=== PATIENT | female | born 1945 | race Caucasian/White ===

== ENCOUNTER → 2018-05-01 06:53 | Outpatient (CLI) | payer MEDICARE, SELFPAY ==
[2018-05-01 09:40] LABS: Alanine Aminotransferase 37 IU/L (9-52); Albumin 4.3 g/dL (3.5-5.0); Albumin Globulin Ratio 1.8 (1.0-2.8); Alkaline Phosphatase 72 U/L (38-126); Aspartate Aminotransferase 30 IU/L (14-36); Bilirubin Total 0.6 mg/dL (0.2-1.3); Blood Urea Nitrogen 20 mg/dL (7-17); Calcium 9.7 mg/dL (8.4-10.2); Carbon Dioxide 30 mmol/L (22-32); Chloride 104 mmol/L (98-107); Cholesterol 178 mg/dL (140-199); Estimated Glomerular Filt Rate > 60.0 mL/min (>60); Globulin 2.4 g/dL (1.7-4.1); Glucose 106 mg/dL (80-110); HDL Cholesterol 66 mg/dL (40-60); HEMOLYSIS < 15 (0-50); LDL Cholesterol Calculated 85 mg/dL (<100); Sodium 143 mmol/L (137-145); Total Protein 6.7 g/dL (6.3-8.2); Triglycerides 136 mg/dL (35-150)
[2018-05-01 09:46] LABS: Potassium 5.4 mmol/L (3.4-5.1)
[2018-05-01 10:18] LABS: Creatinine Urine Random 111.2 mg/dL
[2018-05-01 10:24] LABS: Microalbumi Creatinin Ratio Ur 9.8 ug/mg CR (<30); Microalbumin Urine Random 1.1 mg/dL (0-1.6)
== END ==
PROVIDERS: PCP Physician Assistant; Visit Provider Physician Assistant
DX: I10 Essential (primary) hypertension (principal); Z13.220 Encounter for screening for lipoid disorders; Z13.6 Encounter for screening for cardiovascular disorders
CPT/HCPCS: 36415; 80053; 80061; 82043; 82570

== ENCOUNTER → 2018-09-01 11:22 | Outpatient (CLI) | payer MEDICARE, SELFPAY ==
--- NOTE | 2018-09-01 | DI.MG.S_ITS ---
BILATERAL DIGITAL SCREENING MAMMOGRAM 3D/2D WITH CAD: 09/01/2018 CLINICAL: Routine screening. Comparison is made to exams dated: 08/29/2017 mammogram, 08/26/2016 mammogram, and 08/17/2015 mammogram - [facility]. The tissue of both breasts is heterogeneously dense. This may lower the sensitivity of mammography. Current study was also evaluated with a Computer Aided Detection (CAD) system. There are benign vascular calcifications in both breasts. No significant masses, calcifications, or other findings are seen in either breast. There has been no significant interval change. IMPRESSION: There is no mammographic evidence of malignancy. A 1 year screening mammogram is recommended. This exam was interpreted at Station ID: [id number]. NOTE: For mammograms, a report in lay terms will be sent to the patient. Approximately 15% of breast malignancies will not be visualized mammographically. In the management of a palpable breast mass, a negative mammogram must not discourage biopsy of a clinically suspicious lesion. Electronically Signed By: Jere pickett/lashonda:09/03/2018 09:02:31 letter sent: Normal Exam ACR BI-RADS Category 2: Benign Finding(s) 3342F
== END ==
PROVIDERS: PCP Physician Assistant; Visit Provider Physician Assistant
DX: Z12.31 Encounter for screening mammogram for malignant neoplasm of breast (principal)
CPT/HCPCS: 77063; 77067

== ENCOUNTER → 2018-10-02 06:52 | Outpatient (CLI) | payer MEDICARE, SELFPAY ==
[2018-10-02 08:55] LABS: BUN Creatinine Ratio 27.8 (6-22); Blood Urea Nitrogen 25 mg/dL (7-17); Calcium 9.7 mg/dL (8.4-10.2); Carbon Dioxide 30 mmol/L (22-32); Chloride 100 mmol/L (98-107); Estimated Glomerular Filt Rate > 60.0 mL/min (>60); Glucose 103 mg/dL (80-110); HEMOLYSIS < 15 (0-50); Potassium 5.1 mmol/L (3.4-5.1); Sodium 138 mmol/L (137-145)
== END ==
PROVIDERS: PCP Physician Assistant; Visit Provider Physician Assistant
DX: E87.6 Hypokalemia (principal)
CPT/HCPCS: 36415; 80048

== ENCOUNTER → 2019-05-20 06:56 | Outpatient (CLI) | payer MEDICARE, SELFPAY ==
[2019-05-20 08:17] LABS: Alanine Aminotransferase 17 IU/L (9-52); Albumin 4.5 g/dL (3.5-5.0); Albumin Globulin Ratio 1.6 (1.0-2.8); Alkaline Phosphatase 75 U/L (38-126); Aspartate Aminotransferase 26 IU/L (14-36); BUN Creatinine Ratio 18.8 (6-22); Bilirubin Total 0.5 mg/dL (0.2-1.3); Blood Urea Nitrogen 15 mg/dL (7-17); Calcium 9.8 mg/dL (8.4-10.2); Carbon Dioxide 32 mmol/L (22-32); Chloride 100 mmol/L (98-107); Estimated Glomerular Filt Rate > 60.0 mL/min (>60); Globulin 2.8 g/dL (1.7-4.1); Glucose 94 mg/dL (80-110); HEMOLYSIS < 15 (0-50); Sodium 141 mmol/L (137-145); Total Protein 7.3 g/dL (6.3-8.2)
[2019-05-20 08:18] LABS: Creatinine Urine Random 109.5 mg/dL
[2019-05-20 08:20] LABS: Microalbumi Creatinin Ratio Ur 12.7 ug/mg CR (<30); Microalbumin Urine Random 1.4 mg/dL (0-1.6)
== END ==
PROVIDERS: PCP Physician Assistant; Visit Provider Physician Assistant
DX: I10 Essential (primary) hypertension (principal)
CPT/HCPCS: 36415; 80053; 82043; 82570

== ENCOUNTER → 2019-09-02 08:05 | Outpatient (CLI) | payer MEDICARE, SELFPAY ==
--- NOTE | 2019-09-02 | DI.MG.S_ITS ---
BILATERAL DIGITAL SCREENING MAMMOGRAM 3D/2D WITH CAD: 09/02/2019 CLINICAL: Routine screening. Comparison is made to exams dated: 09/01/2018 mammogram, 08/29/2017 mammogram, and 08/26/2016 mammogram - [facility]. The tissue of both breasts is heterogeneously dense. This may lower the sensitivity of mammography. Current study was also evaluated with a Computer Aided Detection (CAD) system. There are benign vascular calcifications in both breasts. No significant masses, calcifications, or other findings are seen in either breast. There has been no significant interval change. IMPRESSION: There is no mammographic evidence of malignancy. A 1 year screening mammogram is recommended. This exam was interpreted at Station ID: [id number]. NOTE: For mammograms, a report in lay terms will be sent to the patient. Approximately 15% of breast malignancies will not be visualized mammographically. In the management of a palpable breast mass, a negative mammogram must not discourage biopsy of a clinically suspicious lesion. Electronically Signed By: Jere pickett/lashonda:09/03/2019 16:33:32 letter sent: Normal Exam ACR BI-RADS Category 2: Benign Finding(s) 3342F
== END ==
PROVIDERS: PCP Physician Assistant; Visit Provider Physician Assistant
DX: Z12.31 Encounter for screening mammogram for malignant neoplasm of breast (principal)
CPT/HCPCS: 77063; 77067

== ENCOUNTER → 2021-01-19 06:51 | Outpatient (CLI) | payer MEDICARE, SELFPAY ==
[2021-01-19 08:27] LABS: Alanine Aminotransferase 14 IU/L (<35); Albumin 4.5 g/dL (3.5-5.0); Albumin Globulin Ratio 1.7 (1.0-2.8); Alkaline Phosphatase 69 U/L (38-126); Aspartate Aminotransferase 25 IU/L (14-36); BUN Creatinine Ratio 21.2 (6-22); Bilirubin Total 0.4 mg/dL (0.2-1.3); Blood Urea Nitrogen 14 mg/dL (7-17); Calcium 9.7 mg/dL (8.4-10.2); Carbon Dioxide 28 mmol/L (22-32); Chloride 97 mmol/L (98-107); Estimated Glomerular Filt Rate > 60.0 mL/min (>60); Globulin 2.7 g/dL (1.7-4.1); Glucose 104 mg/dL (80-110); HEMOLYSIS < 15 (0-50); Potassium 4.3 mmol/L (3.4-5.1); Sodium 132 mmol/L (137-145); Total Protein 7.2 g/dL (6.3-8.2)
[2021-01-19 08:41] LABS: Free T4, Direct Thyroxine 0.87 ng/dL (0.78-2.19)
[2021-01-19 08:55] LABS: Thyroid Stimulating Hormone 4.51 uIU/mL (0.47-4.68)
[2021-01-19 16:49] LABS: Creatinine Urine Random 47.5 mg/dL
[2021-01-19 16:53] LABS: Microalbumi Creatinin Ratio Ur 18.9 ug/mg CR (<30); Microalbumin Urine Random 0.9 mg/dL (0-1.6)
[2021-01-20 08:16] LABS: Fecal Immunochemical Test Negative (Negative)
== END ==
PROVIDERS: PCP Nurse Practitioner; Referring Provider Nurse Practitioner; Visit Provider Nurse Practitioner
DX: I10 Essential (primary) hypertension (principal); Z79.899 Other long term (current) drug therapy; Z12.11 Encounter for screening for malignant neoplasm of colon
CPT/HCPCS: 36415; 80053; 82043; 82274; 82570; 84439; 84443

== ENCOUNTER → 2021-01-27 15:10 | Outpatient (CLI) | payer MEDICARE, SELFPAY ==
--- NOTE | 2021-01-27 15:13 | DI.MG.S_ITS ---
BILATERAL DIGITAL SCREENING MAMMOGRAM 3D/2D WITH CAD: 01/27/2021 CLINICAL: Routine screening. Comparison is made to exams dated: 09/02/2019 mammogram, 09/01/2018 mammogram, and 08/29/2017 mammogram - [facility]. The tissue of both breasts is heterogeneously dense. This may lower the sensitivity of mammography. Current study was also evaluated with a Computer Aided Detection (CAD) system. There are benign vascular calcifications in both breasts. No significant masses, calcifications, or other findings are seen in either breast. There has been no significant interval change. IMPRESSION: BENIGN There is no mammographic evidence of malignancy. A 1 year screening mammogram is recommended. This exam was interpreted at Station ID: [id number]. NOTE: For mammograms, a report in lay terms will be sent to the patient. Approximately 15% of breast malignancies will not be visualized mammographically. In the management of a palpable breast mass, a negative mammogram must not discourage biopsy of a clinically suspicious lesion. Electronically Signed By: An mera/lashonda:01/27/2021 18:16:03 letter sent: Normal Exam ACR BI-RADS Category 2: Benign Finding(s) 3342F
--- NOTE | 2021-01-27 15:13 | DI.RAD.S_ITS ---
PROCEDURE: XR DEXA AXIAL SKELETON INDICATIONS: Screening post menopausal woman osteoporosis COMPARISON: None. FINDINGS: This blank DEXA report has been sent in error by the PACS system. The correct and complete report will be forthcoming in 1-2 days. Thank you for your patience and understanding. Dictated by: Clarita Eaton MD, PhD on 01/28/2021 at 7:02 Approved by: Clarita Eaton MD, PhD on 01/28/2021 at 7:02
== END ==
PROVIDERS: PCP Nurse Practitioner; Referring Provider Nurse Practitioner; Visit Provider Nurse Practitioner
DX: Z12.31 Encounter for screening mammogram for malignant neoplasm of breast (principal); M85.851 Other specified disorders of bone density and structure, right thigh; Z13.820 Encounter for screening for osteoporosis; Z78.0 Asymptomatic menopausal state; Z90.722 Acquired absence of ovaries, bilateral; Z82.62 Family history of osteoporosis
CPT/HCPCS: 77063; 77067; 77080

== ENCOUNTER → 2021-08-14 11:06 | Outpatient (CLI) | payer MEDICARE, SELFPAY ==
--- NOTE | 2021-08-14 11:08 | DI.MRI.S_ITS ---
PROCEDURE: MR KNEE RT WO CON INDICATIONS: Unspecified internal derangement of right knee TECHNIQUE: Noncontrast sagittal PD fast spin echo and T2 fast spin echo with fat saturation, sagittal 3-D FLASH with fat saturation; coronal T1 spin echo and PD fast spin echo with fat saturation, and axial PD fast spin echo with fat saturation through the knee. COMPARISON: [facility], CR, XR KNEE 4+ VIEWS RIGHT, 03/10/2021, 14:11. FINDINGS: Image quality: Excellent. Menisci: There is a flap tear of the posterior horn of the lateral meniscus. A horizontal tear is seen involving the body and posterior horn of the lateral meniscus. There is medial meniscal extrusion. Small horizontal tear or intrasubstance degeneration is noted in the posterior horn of the medial meniscus. The meniscal root ligaments appear intact. Cruciate ligaments: Mild striations of the anterior cruciate ligament suggesting mild mucoid degeneration. The posterior cruciate ligament is intact. Medial structures: The medial collateral ligament appears intact. The semimembranosus tendon insertions and meniscocapsular junction appear intact. Visualized portions of the pes anserinus tendons appear normal. No abnormal bursal fluid. Lateral structures: The lateral collateral ligament, long and short heads of the biceps femoris tendon appear intact. The popliteus tendon appears normal. Iliotibial band appears normal. Anterior structures: The quadriceps and patellar tendons appear intact. Patellar alignment is normal. No femoral trochlear dysplasia or ventral trochlear prominence. No edema in the infrapatellar fat pad. Bones and cartilage: No bone marrow contusions or fractures. Chondromalacia patella. There is also cartilage loss in the lateral and medial femorotibial compartments, more pronounced in the lateral compartment with cartilage thinning near full-thickness cartilage fissures. Joint space: There is moderate knee joint effusion. There is a large multilocular Babcock's cyst. Normal appearing synovial plicae are incidentally noted. IMPRESSION: 1. There is complex tear of the lateral meniscus. 2. Small horizontal tear versus intrasubstance degeneration of the posterior horn of the medial meniscus. 3. Striations of the ACL suggesting mild mucoid degeneration. 4. Tricompartmental chondral malacia. 5. Large multilocular Babcock's cyst. 6. Moderate knee joint effusion. Dictated by: Abril Guevara M.D. on 08/16/2021 at 8:14 Approved by: Abril Guevara M.D. on 08/16/2021 at 8:27
== END ==
PROVIDERS: PCP Nurse Practitioner; Referring Provider Orthopaedic Surgery; Visit Provider Orthopaedic Surgery
DX: S83.271A Complex tear of lateral meniscus, current injury, right knee, initial encounter (principal); S83.241A Other tear of medial meniscus, current injury, right knee, initial encounter; M94.262 Chondromalacia, left knee; M71.21 Synovial cyst of popliteal space [Baker], right knee; M25.461 Effusion, right knee
CPT/HCPCS: 73721

== ENCOUNTER → 2022-02-14 13:04 | Outpatient (CLI) | payer MEDICARE, SELFPAY ==
--- NOTE | 2022-02-14 13:08 | DI.MRI.S_ITS ---
PROCEDURE: MR PELVIS WO CON INDICATIONS: pain, weakness, numbness of leg TECHNIQUE: Noncontrast coronal and sagittal T1 spin echo and STIR, and axial T1 spin echo and T2 fast spin echo with fat saturation through the bony pelvis. COMPARISON: None. FINDINGS: Image quality: Excellent. Bones: Bone marrow of the pelvic ring, sacrum, and proximal femurs show normal signal throughout. No intraosseous lesions or fractures identified. Degenerative changes in the included lower lumbar spine are better demonstrated on the dedicated lumbar spine MRI performed on the same day. Moderate degenerative changes are seen in both hips with small bilateral effusions. Tendons and ligaments: The gluteus medius and minimus tendons appear intact, without associated muscle atrophy. The proximal iliotibial band appears intact. The iliopsoas tendon appears intact, without adjacent bursal fluid collections. There is low-grade partial intrasubstance tearing of the left hamstring tendon at its origin. Bilateral proximal hamstring tendinosis is seen. The direct and indirect heads of the rectus femoris muscle origin appear intact. Soft tissues: Visualized portions of the lumbosacral plexus and proximal sciatic nerves are grossly intact. No presacral mass. The piriformis muscles are symmetric. Visualized muscles demonstrate normal bulk and internal signal. No free pelvic fluid. Bladder wall thickness is normal. Moderate stool in the rectum. Genitourinary structures and bowel loops appear normal where visualized. A 4.5 x 0.9 x 1.9 cm fatty lesion is seen within the right gluteus rosie muscle (image 10 of series 2), consistent with a benign intramuscular lipoma. IMPRESSION: 1. No presacral mass or lumbosacral nerve impingement identified. 2. No acute osseous abnormality. 3. Moderate bilateral hip osteoarthrosis with small joint effusions. Degenerative changes in the included lower lumbar spine are better demonstrated on the separate lumbar spine MRI performed on the same day. 4. Low-grade partial intrasubstance tearing of the proximal left hamstring tendon superimposed on chronic tendinosis. 5. 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 Dictated by: Corby Bello M.D. on 02/14/2022 at 15:00 Approved by: Corby Bello M.D. on 02/14/2022 at 15:16
--- NOTE | 2022-02-14 13:08 | DI.MRI.S_ITS ---
PROCEDURE: MR LUMBAR SPINE WO CON INDICATIONS: pain, weakness, numbness of leg TECHNIQUE: Noncontrast sagittal T1 spin echo and T2 fast echo, sagittal STIR, and T2 fast spin echo through the lumbar spine. In cases with scoliosis, additional coronal T2 fast spin echo may be performed. COMPARISON: None. FINDINGS: Image quality: Excellent. Alignment and Curvature: There is grade 1 L4 on L5 anterolisthesis. Spinal alignment is otherwise unremarkable. Bone Marrow: Marrow is of normal overall signal. No acute vertebral body compression fractures. Spinal Cord: Conus medullaris terminates at the L1 level. Visualized cord demonstrates normal signal and size. Paraspinous Soft Tissues: No paravertebral masses. T12-L1: Normal appearance. L1-L2: Mild disc desiccation and height loss. Broad-based disc bulge. No canal stenosis. Mild bilateral foraminal narrowing. L2-L3: Moderate disc desiccation and height loss. Broad-based disc bulge. No canal stenosis. Mild bilateral neural foraminal stenosis. L3-L4: Moderate disc desiccation and height loss. Severe facet and ligamentum flavum hypertrophy. No canal stenosis. Moderate right foraminal narrowing. Mild left neural foraminal stenosis. L4-L5: Grade 1 L4 on L5 anterolisthesis. Severe facet ligamentum flavum hypertrophy. No canal stenosis. Moderate bilateral neural foraminal stenosis. L5-S1: Moderate disc desiccation and height loss. Vacuum disc phenomenon. Severe facet sclerosis. No canal stenosis. Mild bilateral foraminal narrowing. There is a 1.2 x 0.6 x 1.4 cm left perineural cyst at the level of the L5-S1 disc interspace which results in mass effect on the exiting left nerve roots (series 8/image 4). IMPRESSION: 1. Multilevel disc desiccation and height loss, most severe from L1-L4. 2. No canal stenosis of the lumbar spine. 3. Moderate right L3-4 foraminal narrowing, moderate bilateral foraminal narrowing at L4-5. 4. 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 ictated by: Miryam Laird M.D. on 02/14/2022 at 16:00 Approved by: Miryam Laird M.D. on 02/14/2022 at 16:10
--- NOTE | 2022-02-14 13:09 | DI.MG.S_ITS ---
BILATERAL DIGITAL SCREENING MAMMOGRAM 3D/2D WITH CAD: 02/14/2022 CLINICAL: Routine screening. Comparison is made to exams dated: 01/27/2021 mammogram, 09/02/2019 mammogram, and 09/01/2018 mammogram - [facility]. The tissue of both breasts is heterogeneously dense. This may lower the sensitivity of mammography. Current study was also evaluated with a Computer Aided Detection (CAD) system. There is a possible asymmetry in the right breast middle depth medial region seen on the craniocaudal view only. This is more prominent. No other significant masses, calcifications, or other findings are seen in either breast. IMPRESSION: INCOMPLETE: NEEDS ADDITIONAL IMAGING EVALUATION The possible asymmetry in the right breast is indeterminate. Additional views with possible ultrasound are recommended. This exam was interpreted at Station ID: [id number]. NOTE: For mammograms, a report in lay terms will be sent to the patient. Approximately 15% of breast malignancies will not be visualized mammographically. In the management of a palpable breast mass, a negative mammogram must not discourage biopsy of a clinically suspicious lesion. Electronically Signed By: Corby lala/lashonda:02/14/2022 14:00:19 letter sent: Additional Imaging Needed ACR BI-RADS Category 0: Incomplete 3340F
== END ==
PROVIDERS: PCP Nurse Practitioner; Referring Provider Family Medicine; Visit Provider Family Medicine
DX: M54.41 Lumbago with sciatica, right side (principal); Z12.31 Encounter for screening mammogram for malignant neoplasm of breast; M54.42 Lumbago with sciatica, left side; M16.0 Bilateral primary osteoarthritis of hip; M47.816 Spondylosis without myelopathy or radiculopathy, lumbar region; S76.312A Strain of muscle, fascia and tendon of the posterior muscle group at thigh level, left thigh, initial encounter; D17.9 Benign lipomatous neoplasm, unspecified; M48.061 Spinal stenosis, lumbar region without neurogenic claudication; G96.191 Perineural cyst; G89.29 Other chronic pain
CPT/HCPCS: 72148; 72195; 77063; 77067

== ENCOUNTER → 2022-04-20 18:22 | Outpatient (CLI) | payer MEDICARE, SELFPAY ==
--- NOTE | 2022-04-20 18:25 | DI.MRI.S_ITS ---
PROCEDURE: MR LUMBAR SPINE WO/W CON INDICATIONS: RIGHT HIP WEAKNESS S/P LUMBAR DECOMPRESSION TECHNIQUE: Noncontrast sagittal T1 spin echo and T2 fast spin echo, sagittal STIR, axial T1 and T2 fast spin echo through the lumbar spine. In cases with scoliosis, additional coronal T2 fast spin echo may be performed. After the administration of contrast, sagittal and axial T1 spin echo with fat saturation through the lumbar spine. COMPARISON: [facility], , MR LUMBAR SPINE WO CON, 02/14/2022, 13:37. FINDINGS: Image quality: Excellent. Alignment and curvature: There is normal bony alignment. Marrow: Marrow is of normal overall signal. No acute vertebral body compression fractures. No suspicious marrow enhancement. Spinal cord: Conus medullaris terminates at the L1 level. Visualized spinal cord demonstrates normal signal, without suspicious enhancement. Paraspinous soft tissues: There is soft tissue enhancement along the left L4-5 surgical track in the posterior paraspinal soft tissues, within expected limits T12-L1: Normal appearance. L1-L2: Normal appearance. L2-L3: Normal appearance. L3-L4: Normal appearance. L4-L5: Prior left hemilaminectomy noted. There is enhancement of the dorsal epidural space with thickening measuring up to 3 mm resulting in [id number] central stenosis. Moderate right and no left foraminal stenosis L5-S1: Disc space narrowing and posterior disc bulge without central or foraminal stenosis IMPRESSION: 1. L4-5 dorsal epidural soft tissue thickening and enhancement status post left hemilaminectomy. While this could reflect postoperative enhancement, dorsal epidural hematoma or less likely developing phlegmon or abscess would also be a differential depending on the surgical timing and clinical findings. Consider short-term interval follow-up and/or neuro surgical consultation. Approved by: Fermin Live M.D. on 04/21/2022 at 17:07
--- NOTE | 2022-04-20 18:25 | DI.MRI.S_ITS ---
PROCEDURE: MR PELIS WO/W CON INDICATIONS: RIGHT HIP WEAKNESS S/P LUMBAR DECOMPRESSION TECHNIQUE: Noncontrast coronal T1 spin echo and STIR, sagittal T1 spin echo with fat saturation and STIR, axial T1 spin echo and T2 fast spin echo with fat saturation. After the administration of contrast, axial/sagittal/coronal T1 spin echo with fat saturation through the pelvis. COMPARISON: [facility], MR, MR PELVIS WO CON, 02/14/2022, 14:05. FINDINGS: Image quality: Excellent. Bones: Postsurgical changes are partially included at the lower lumbar spine, which are better evaluated on the dedicated lumbar spine MRI performed on the same day. The sacrum and pelvis demonstrate normal signal intensity without acute osseous edema. The overlying cortex appears intact. No abnormal intraosseous enhancement in the pelvis. Soft tissues: Soft tissue edema and enhancement are seen at the lower lumbar spine operative site, better demonstrated on the dedicated lumbar spine MRI. No additional area of significant soft tissue edema or enhancement is seen. A nonenhancing incidental intermuscular lipoma is seen within the right gluteus rosie muscle. Mild soft tissue edema is seen along the deep margin of the left iliacus muscle and within the proximal portions of the bilateral gluteus medius muscles no associated postcontrast enhancement is seen. Status post hysterectomy. No acute abnormality is seen in the included pelvic soft tissues. No presacral edema or fluid collection. IMPRESSION: 1. Postsurgical changes are partially included within the lower lumbar spine with associated increased T2-weighted signal and enhancement. Findings are better evaluated on the dedicated lumbar spine MRI performed at the same time. Please see the report from that exam for full details. 2. Mild soft tissue edema without enhancement is seen along the deep margin of the left iliacus muscle, within the proximal left gluteus minimus muscle, and the proximal gluteus medius muscles bilaterally. Findings are nonspecific and may be related to low grade muscle strains. Dictated by: Corby Bello M.D. on 04/21/2022 at 13:28 Approved by: Corby Bello M.D. on 04/21/2022 at 13:44
== END ==
PROVIDERS: PCP Nurse Practitioner; Referring Provider Neurological Surgery; Visit Provider Neurological Surgery
DX: M43.06 Spondylolysis, lumbar region (principal); G83.10 Monoplegia of lower limb affecting unspecified side; M51.27 Other intervertebral disc displacement, lumbosacral region; M48.061 Spinal stenosis, lumbar region without neurogenic claudication; M79.89 Other specified soft tissue disorders; Z98.890 Other specified postprocedural states
CPT/HCPCS: 72158; 72197; A9579

== ENCOUNTER → 2022-05-25 15:40 | Outpatient (CLI) | payer MEDICARE, SELFPAY ==
[2022-05-25 18:14] LABS: Add Manual Diff / Slide Review NO; Basophils Absolute Auto 0 /uL (0-100); Basophils Percent Auto 0.3 % (0-2); Eosinophils Absolute Auto 200 /uL (0-450); Eosinophils Percent Auto 2.9 % (2-4); Hematocrit 39.8 % (36-46); Hemoglobin 14.3 g/dL (12.0-16.0); Lymphocytes Absolute Auto 1300 /uL (1100-4500); Lymphocytes Percent Auto 22.2 % (25-40); Mean Corpuscular HGB Conc 35.9 % (30-36); Mean Corpuscular Hemoglobin 32.8 PG (26-34); Mean Corpuscular Volume 91.4 fL (80-100); Monocytes Absolute Auto 500 /uL (0-900); Monocytes Percent Auto 8.4 % (3-14); Neutrophils Absolute Auto 4000 /uL (1500-7000); Neutrophils Percent Auto 66.2 % (50-75); Platelet Count 231 X10^3/uL (150-400); Red Blood Cell Count 4.36 X10^6/uL (4.0-5.2); Red Cell Distribution Width 13.2 % (11.6-14.8); White Blood Cell Count 6.1 X10^3/uL (4.5-11.0)
[2022-05-25 18:22] LABS: Alanine Aminotransferase 14 IU/L (<35); Albumin 3.9 g/dL (3.5-5.0); Albumin Globulin Ratio 1.8 (1.0-2.8); Alkaline Phosphatase 66 U/L (38-126); Aspartate Aminotransferase 26 IU/L (14-36); BUN Creatinine Ratio 23.7 (6-22); Bilirubin Total 0.5 mg/dL (0.2-1.3); Blood Urea Nitrogen 14 mg/dL (7-17); Calcium 9.4 mg/dL (8.4-10.2); Carbon Dioxide 26 mmol/L (22-32); Chloride 102 mmol/L (98-107); Estimated Glomerular Filt Rate > 60 mL/min (>60); Globulin 2.2 g/dL (1.7-4.1); Glucose 87 mg/dL (80-110); HEMOLYSIS 26 (0-50); Magnesium 1.6 mg/dL (1.6-2.3); Sodium 137 mmol/L (137-145); Total Protein 6.1 g/dL (6.3-8.2)
== END ==
PROVIDERS: PCP Nurse Practitioner; Visit Provider Nurse Practitioner
DX: I10 Essential (primary) hypertension (principal); R62.7 Adult failure to thrive; Z74.09 Other reduced mobility; Z78.9 Other specified health status
CPT/HCPCS: 80053; 83735; 85025

== ENCOUNTER 2022-06-05 12:23 | Emergency (ER) | payer MEDICARE, SELFPAY ==
[2022-06-05] VITALS (21 sets, daily range): BP systolic 186–242; BP diastolic 88–116; PULSE 56–77; RESP 16–18; TEMP 36.6; O2SAT 92–100; BMI 25.8
--- NOTE | 2022-06-05 | DI.RAD.S_ITS ---
PROCEDURE: XR THORACIC SPINE 2V INDICATIONS: FALL, WEAKNESS. TECHNIQUE: 3 views of the thoracic spine were acquired. COMPARISON: None. FINDINGS: Bones: No fractures or dislocations. No suspicious bony lesions. 12 pairs of ribs are noted, and appear intact where visualized. Soft tissues: No paravertebral stripe thickening. IMPRESSION: Unremarkable thoracic spine radiographs Approved by: Fermin Live M.D. on 06/05/2022 at 17:11
--- NOTE | 2022-06-05 07:29 | DI.MRI.S_ITS ---
PROCEDURE: MR LUMBAR SPINE WO/W CON INDICATIONS: LE weakness with T/L pain and urinary retention TECHNIQUE: Noncontrast sagittal T1 spin echo and T2 fast spin echo, sagittal STIR, axial T1 and T2 fast spin echo through the lumbar spine. In cases with scoliosis, additional coronal T2 fast spin echo may be performed. After the administration of contrast, sagittal and axial T1 spin echo with fat saturation through the lumbar spine. COMPARISON: [facility], , MR LUMBAR SPINE WO/W CON, 04/20/2022, 18:49. FINDINGS: Image quality: Significant motion is present on multiple images, limiting areas of fine detail evaluation. Alignment and curvature: There is normal bony alignment. Marrow: Marrow is of normal overall signal. No acute vertebral body compression fractures. No suspicious marrow enhancement. Spinal cord: Conus medullaris terminates at the L1-2 level. Visualized spinal cord demonstrates normal signal, without suspicious enhancement. Paraspinous soft tissues: No paravertebral masses or abnormal enhancement. Discs: Moderate multilevel disc desiccation is present. Severe motion artifact is present at multiple levels particularly on the axial images. There is left hemilaminectomy noted at L4-5 better appreciated on prior exam. There is overall an appearance from sagittal view of mild spinal stenosis at L4-5. Foraminal narrowing also appears to be most prominent at L4-5. No areas of abnormal enhancement are identified. IMPRESSION: Significantly limited exam secondary to motion. Overall, findings appear relatively stable compared to 04/20/2022. However, if concern persists, repeat study is highly recommended as current exam borders nondiagnostic. Dictated by: Mary Deleon M.D. on 06/06/2022 at 9:43 Approved by: Mary Deleon M.D. on 06/06/2022 at 9:47
--- NOTE | 2022-06-05 13:05 | ED_ITS ---
HPI - Fall <Billy Bell PA-C - Last Filed: 06/05/22 16:46> General Chief Complaint: Trauma Stated Complaint: fell of chair last night cant support weight Time Seen by Provider: 06/05/22 12:30 Source: patient Mode of arrival: Wheelchair History of Present Illness HPI Narrative: Patient is 76-year-old female who presents to the emergency room today fall. States she fell this morning while she was trying to transfer from walker to the toilet. Also states she fell last night while she was trying to transfer from a recliner chair to the walker. Describes both falls as a missing the transfer to seat and slowly going down to the floor. Patient strongly states she did not impact the floor forcibly on her fall. Patient admits to falls last year. States she is fallen between 10 to approximately 20 times in the last year. States her falls are related to her already weekend left lower extremity. Patient with left lower extremity is weak because she had a perineal cyst at L5- S1 removed on March 17, 2022. Also states that her right leg was weak and after her fall last night. The patient states now she has weakness both lower extremities and is unable to transfer herself at all. States she lives and has no family that live with no one to take care of her at this time. Hopes that she can be either admitted or transferred to a facility where she can regain her ability to take care of herself and then transferred home. Patient states that since the perineural cyst removal that she is been receiving PT OT care at since April 21, 2022. Patient also admits to a current diagnosis of hypertension is being treated with valsartan and metoprolol. Related Data Home Medications Medication Instructions Recorded Confirmed Ibuprofen See Rx Instructions .Route .COMPLEX 05/10/18 05/25/22 Vitamin B Complex See Rx Instructions .Route .COMPLEX 05/10/18 05/25/22 Vitamin D3 See Rx Instructions .Route .COMPLEX 05/10/18 05/25/22 red clover leaf extract 500 mg mg PO 06/19/19 05/25/22 tablet Ashwaganda See Rx Instructions .Route .COMPLEX 04/03/20 05/25/22 calcium carbonate 300 mg (750 mg) 600 mg PO BID 02/12/21 05/25/22 chewable tablet (Tums) cholecalciferol (vitamin D3) 125 125 mcg PO DAILY 02/12/21 05/25/22 mcg (5,000 unit) capsule ascorbate calcium (vitamin C) 500 500 mg PO DAILY 02/24/22 05/25/22 mg tablet Previous Rx's Medication Instructions Recorded valsartan 320 See Rx Instructions .Route 02/24/22 mg-hydrochlorothiazide 25 mg tablet .COMPLEX #90 tabs metoprolol tartrate 25 mg tablet 25 mg PO BID #180 tabs 05/03/22 baclofen 5 mg tablet 5 mg PO BID PRN muscle spasms #60 05/26/22 tabs Allergies Allergy/AdvReac Type Severity Reaction Status Date / Time irbesartan AdvReac Intermediate headache; Verified 06/19/19 07:56 runny nose; fatigue OPIODS Allergy Severe I PASS Uncoded 06/19/19 07:56 OUT ALL MYACINS AdvReac Intermediate Blistery Uncoded 06/19/19 07:56 hives and upset stomach Review of Systems <Billy Bell PA-C - Last Filed: 06/05/22 16:46> Review of Systems Narrative: R.O.S.: General: No fever, chills or fatigue. Cardiovascular: No chest pain or palpitations Respiratory: No S.O.B. HEENT: No congestion, ear pain, rhinorrhea, sore throat or tinnitus Gastrointestinal: No nausea or vomiting : No urinary concerns Skin: No rash or associated abnormalities Musculoskeletal: Fall secondary to weakness to bilateral lower extremities. ? Neurological: Awake, alert and in not apparent distress. No Headaches, changes in vision or other related neurological concerns. 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 Colon cancer screening Depression Eczema Foot pain (1984) Foraminal stenosis due to intervertebral disc disease Fractures (~1989) Hypertension Left leg weakness Lumbar region somatic dysfunction Measles Mumps Osteoarthritis Osteopenia Other custodial (current) drug therapy Pelvic somatic dysfunction Perineural cyst Sacral region somatic dysfunction Screening for osteoporosis Surgical History (Updated 06/06/22 @ 07:42 by Danica Gallagher MD) History of ankle surgery (1984) History of cataract removal with insertion of prosthetic lens (2012) History of tonsillectomy (1950) Hx of foot surgery (1984) S/P lumbar laminectomy Status post hysterectomy (1990) Status post tubal ligation (1978) Family History Brother Diabetes mellitus Hypertension Mother COPD (chronic obstructive pulmonary disease) Father Cancer Grandmother No problems noted. Grandfather No problems noted. Grandmother No problems noted. Social History household members: family Smoking Status: Never smoker second hand exposure: No alcohol intake: current substance use type: does not use Smoking Status: Never smoker Substance Use Type: does not use Exam <Billy Bell PA-C - Last Filed: 06/05/22 16:46> Narrative Exam Narrative: Physical Exam: ? General: normal appearance, well developed, well nourished, alert, and awake. Not in acute distress. ? Head: Normocephalic, no lesions. Chest: Lungs CTAB, no rales, rhonchi or wheezes. ?? Heart: RRR, no murmurs, rubs or gallops. Eyes: PERRLA, EOM's full, conjunctivae clear. ? Neuro: Physiological, no localizing findings, CN3-12 intact. ?? Musculoskeletal: Patient has bilateral weakness to both lower extremities. Patient able to display very minimal motor movement to the left lower extremity. The left lower extremity is only voluntary removed through twitching when the patient gives in epic. Skin: Normal, no rashes, no lesions noted. ?? PSYCHIATRIC: The mood is good, no blunted affect. Speech is clear. Thought process is linear, thought content is appropriate. The voice is without significant inflection. Gastrointestinal: Soft; NT; ND; Pos BS with Neg. rebound tenderness. No scars or major deformities noted on Visual Inspection. Initial Vital Signs Initial Vital Signs: Vital Signs Temperature 98 F 06/05/22 12:23 Pulse Rate 65 06/05/22 12:23 Respiratory Rate 18 06/05/22 12:23 Blood Pressure 212/116 H 06/05/22 12:23 Pulse Oximetry 99 06/05/22 12:23 Oxygen Delivery Method 06/05/22 12:23 <Sim Melara DO - Last Filed: 06/06/22 07:06> Initial Vital Signs Initial Vital Signs: Vital Signs Temperature 98 F 06/05/22 12:23 Pulse Rate 65 06/05/22 12:23 Respiratory Rate 18 06/05/22 12:23 Blood Pressure 212/116 H 06/05/22 12:23 Pulse Oximetry 99 06/05/22 12:23 Oxygen Delivery Method 06/05/22 12:23 <Danica Gallagher MD - Last Filed: 06/06/22 17:41> Initial Vital Signs Initial Vital Signs: Vital Signs Temperature 98 F 06/05/22 12:23 Pulse Rate 65 06/05/22 12:23 Respiratory Rate 18 06/05/22 12:23 Blood Pressure 212/116 H 06/05/22 12:23 Pulse Oximetry 99 06/05/22 12:23 Oxygen Delivery Method 06/05/22 12:23 Course <Billy Bell PA-C - Last Filed: 06/05/22 16:46> Orders Ordered: Hydrochlorothiazide (Hydrochlorothiazide 25 Mg Tablet) 25 mg PO DAILY COUNT INCLUDES THE [facility] Last Admin: 06/06/22 09:20 Dose: 25 mg Documented By: AUSTEN Metoprolol Tartrate (Metoprolol Ir 25 Mg Tablet) 25 mg PO BID COUNT INCLUDES THE [facility] Last Admin: 06/06/22 09:22 Dose: 25 mg Documented By: AUSTEN Valsartan (Valsartan 80 Mg Tablet) 320 mg PO DAILY COUNT INCLUDES THE [facility] Last Admin: 06/06/22 09:20 Dose: 320 mg Documented By: AUSTEN Discontinued Medications Acetaminophen (Acetaminophen 325 Mg Tablet) 650 mg PO NOW ONE Stop: 06/05/22 23:44 Last Admin: 06/05/22 23:48 Dose: 650 mg Documented By: LENCHO Hydrochlorothiazide (Hydrochlorothiazide 25 Mg Tablet) 25 mg PO NOW ONE Stop: 06/05/22 17:06 Last Admin: 06/05/22 18:11 Dose: 25 mg Documented By: CYNDY Lorazepam (Lorazepam 2 Mg/Ml Inj) 1 mg IV NOW ONE Stop: 06/06/22 06:55 Last Admin: 06/06/22 06:58 Dose: 1 mg Documented By: DORA Valsartan (Valsartan 80 Mg Tablet) 320 mg PO NOW ONE Stop: 06/05/22 17:06 Last Admin: 06/05/22 18:11 Dose: 320 mg Documented By: CYNDY Vital Signs Vital signs: Vital Signs - 8 hr 06/06/22 12:07 06/06/22 15:14 06/06/22 15:14 Temperature 98.1 F Pulse Rate 90 75 Respiratory Rate 18 Blood Pressure 122/61 148/78 H Pulse Oximetry 98 98 Oxygen Delivery Method Room Air <Sim Melara DO - Last Filed: 06/06/22 07:06> Orders Ordered: Hydrochlorothiazide (Hydrochlorothiazide 25 Mg Tablet) 25 mg PO DAILY COUNT INCLUDES THE [facility] Last Admin: 06/06/22 09:20 Dose: 25 mg Documented By: AUSTEN Metoprolol Tartrate (Metoprolol Ir 25 Mg Tablet) 25 mg PO BID COUNT INCLUDES THE [facility] Last Admin: 06/06/22 09:22 Dose: 25 mg Documented By: AUSTEN Valsartan (Valsartan 80 Mg Tablet) 320 mg PO DAILY COUNT INCLUDES THE [facility] Last Admin: 06/06/22 09:20 Dose: 320 mg Documented By: AUSTEN Discontinued Medications Acetaminophen (Acetaminophen 325 Mg Tablet) 650 mg PO NOW ONE Stop: 06/05/22 23:44 Last Admin: 06/05/22 23:48 Dose: 650 mg Documented By: LENCHO Hydrochlorothiazide (Hydrochlorothiazide 25 Mg Tablet) 25 mg PO NOW ONE Stop: 06/05/22 17:06 Last Admin: 06/05/22 18:11 Dose: 25 mg Documented By: CYNDY Lorazepam (Lorazepam 2 Mg/Ml Inj) 1 mg IV NOW ONE Stop: 06/06/22 06:55 Last Admin: 06/06/22 06:58 Dose: 1 mg Documented By: DORA Valsartan (Valsartan 80 Mg Tablet) 320 mg PO NOW ONE Stop: 06/05/22 17:06 Last Admin: 06/05/22 18:11 Dose: 320 mg Documented By: CYNDY Vital Signs Vital signs: Vital Signs - 8 hr 06/06/22 12:07 06/06/22 15:14 06/06/22 15:14 Temperature 98.1 F Pulse Rate 90 75 Respiratory Rate 18 Blood Pressure 122/61 148/78 H Pulse Oximetry 98 98 Oxygen Delivery Method Room Air <Danica Gallagher MD - Last Filed: 06/06/22 17:41> Orders Ordered: Hydrochlorothiazide (Hydrochlorothiazide 25 Mg Tablet) 25 mg PO DAILY COUNT INCLUDES THE [facility] Last Admin: 06/06/22 09:20 Dose: 25 mg Documented By: AUSTEN Metoprolol Tartrate (Metoprolol Ir 25 Mg Tablet) 25 mg PO BID COUNT INCLUDES THE [facility] Last Admin: 06/06/22 09:22 Dose: 25 mg Documented By: AUSTEN Valsartan (Valsartan 80 Mg Tablet) 320 mg PO DAILY COUNT INCLUDES THE [facility] Last Admin: 06/06/22 09:20 Dose: 320 mg Documented By: AUSTEN Discontinued Medications Acetaminophen (Acetaminophen 325 Mg Tablet) 650 mg PO NOW ONE Stop: 06/05/22 23:44 Last Admin: 06/05/22 23:48 Dose: 650 mg Documented By: LENCHO Hydrochlorothiazide (Hydrochlorothiazide 25 Mg Tablet) 25 mg PO NOW ONE Stop: 06/05/22 17:06 Last Admin: 06/05/22 18:11 Dose: 25 mg Documented By: CYNDY Lorazepam (Lorazepam 2 Mg/Ml Inj) 1 mg IV NOW ONE Stop: 06/06/22 06:55 Last Admin: 06/06/22 06:58 Dose: 1 mg Documented By: DORA Valsartan (Valsartan 80 Mg Tablet) 320 mg PO NOW ONE Stop: 06/05/22 17:06 Last Admin: 06/05/22 18:11 Dose: 320 mg Documented By: CYNDY Vital Signs Vital signs: Vital Signs - 8 hr 06/06/22 12:07 06/06/22 15:14 06/06/22 15:14 Temperature 98.1 F Pulse Rate 90 75 Respiratory Rate 18 Blood Pressure 122/61 148/78 H Pulse Oximetry 98 98 Oxygen Delivery Method Room Air MDM - Fall <Billy Bell PA-C - Last Filed: 06/05/22 16:46> Lab Data Result diagrams: 06/05/22 18:15 06/05/22 18:15 Labs: Lab Results 06/05/22 06/05/22 06/05/22 Range/Units 17:22 18:15 18:15 WBC 8.2 (4.5-11.0) X10^3/uL RBC 4.67 (4.0-5.2) X10^6/uL Hgb 15.1 (12.0-16.0) g/dL Hct 42.8 (36-46) % MCV 91.5 (80-100) fL MCH 32.3 (26-34) PG MCHC 35.3 (30-36) % RDW 13.0 (11.6-14.8) % Plt Count 236 (150-400) X10^3/uL Neut % (Auto) 84.0 H (50-75) % Lymph % (Auto) 6.4 L (25-40) % [place] % (Auto) 6.1 (3-14) % Eos % (Auto) 2.6 (2-4) % Baso % (Auto) 0.9 (0-2) % Neut # (Auto) 6800 (2770-0940) /uL Lymph # (Auto) 500 L (9044-0573) /uL Walton # (Auto) 500 (0-900) /uL Eos # (Auto) 200 (0-450) /uL Baso # (Auto) 100 (0-100) /uL Sodium 137 (137-145) mmol/L Potassium 3.7 (3.4-5.1) mmol/L Chloride 100 (98-107) mmol/L Carbon Dioxide 28 (22-32) mmol/L BUN 13 (7-17) mg/dL Creatinine 0.58 (0.52-1.04) mg/dL Estimated GFR > 60 (>60) mL/min BUN/Creatinine Ratio 22.4 H (6-22) Glucose 112 H (80-110) mg/dL Calcium 9.7 (8.4-10.2) mg/dL Total Bilirubin 1.1 (0.2-1.3) mg/dL AST 26 (14-36) IU/L ALT 17 (<35) IU/L Alkaline Phosphatase 72 (38-126) U/L Total Protein 6.9 (6.3-8.2) g/dL Albumin 4.3 (3.5-5.0) g/dL Globulin 2.6 (1.7-4.1) g/dL Albumin/Globulin Ratio 1.7 (1.0-2.8) Urine Color Urine Appearance Urine pH (4.5-8.0) Ur Specific [place] (1.000-1.035) Urine Protein (Negative) Urine Glucose (UA) (Negative) g/dL Urine Ketones (NEGATIVE) Urine Occult Blood (Negative) Urine Nitrate (Negative) Urine Bilirubin (NEGATIVE) Urine Urobilinogen (0.2) E.U./dL Ur Leukocyte Esterase (NEGATIVE) Urine RBC (0-5/HPF) Urine WBC (0-5/HPF) Amorphous Sediment Urine Bacteria (None) Ur Culture Indicated? Micro UA Comment SARS-CoV-2 (PCR) Negative (Negative) 06/05/22 Range/Units 18:16 WBC (4.5-11.0) X10^3/uL RBC (4.0-5.2) X10^6/uL Hgb (12.0-16.0) g/dL Hct (36-46) % MCV (80-100) fL MCH (26-34) PG MCHC (30-36) % RDW (11.6-14.8) % Plt Count (150-400) X10^3/uL Neut % (Auto) (50-75) % Lymph % (Auto) (25-40) % [place] % (Auto) (3-14) % Eos % (Auto) (2-4) % Baso % (Auto) (0-2) % Neut # (Auto) (7526-4106) /uL Lymph # (Auto) (1030-0929) /uL [place] # (Auto) (0-900) /uL Eos # (Auto) (0-450) /uL Baso # (Auto) (0-100) /uL Sodium (137-145) mmol/L Potassium (3.4-5.1) mmol/L Chloride (98-107) mmol/L Carbon Dioxide (22-32) mmol/L BUN (7-17) mg/dL Creatinine (0.52-1.04) mg/dL Estimated GFR (>60) mL/min BUN/Creatinine Ratio (6-22) Glucose (80-110) mg/dL Calcium (8.4-10.2) mg/dL Total Bilirubin (0.2-1.3) mg/dL AST (14-36) IU/L ALT (<35) IU/L Alkaline Phosphatase (38-126) U/L Total Protein (6.3-8.2) g/dL Albumin (3.5-5.0) g/dL Globulin (1.7-4.1) g/dL Albumin/Globulin Ratio (1.0-2.8) Urine Color Yellow Urine Appearance Clear Urine pH 6.5 (4.5-8.0) Ur Specific [place] <=1.005 (1.000-1.035) Urine Protein Negative (Negative) Urine Glucose (UA) Negative (Negative) g/dL Urine Ketones Negative (NEGATIVE) Urine Occult Blood Negative (Negative) Urine Nitrate Negative (Negative) Urine Bilirubin Negative (NEGATIVE) Urine Urobilinogen 0.2 (0.2) E.U./dL Ur Leukocyte Esterase Negative (NEGATIVE) Urine RBC None seen (0-5/HPF) Urine WBC None seen (0-5/HPF) Amorphous Sediment 1+ Urine Bacteria None seen (None) Ur Culture Indicated? Cult not indicated Micro UA Comment Microscopic normal SARS-CoV-2 (PCR) (Negative) MDM Narrative Medical decision making narrative: Patient 8-year-old female who presents to the emergency room today with complaint of fall and history of multiple falls. Presents concerns with being able to live at home and take care of herself and would like some type of transfer to rehab facility for rehab before she returns home to try and take care of herself. We had a discussion with the social welfare administrator in the emergency room today in regards to possible transfer to a [place] facility for the patient per her inability to take care of herself. The social workers and still are possible ways to get this done she will need to evaluate the patient current insurance condition and consult from physical therapy in regards to this need. community action worker informed me that she is unable to have the patient referred to a [place] facility because the patient is not vaccinated and boosted for COVID at this time. The social welfare administrator will have a discussion with the patient. community action worker had a follow-up discussion with the patient informed the patient that found a [place] facility called [facility] that would take her without being vaccinated but the patient declined at this time. Patient states she wants to be discharged home and will weigh her care options later. Patient was discharged home. <Sim Melara, DO - Last Filed: 06/06/22 07:06> Lab Data Labs: Lab Results 06/05/22 06/05/22 06/05/22 Range/Units 17:22 18:15 18:15 WBC 8.2 (4.5-11.0) X10^3/uL RBC 4.67 (4.0-5.2) X10^6/uL Hgb 15.1 (12.0-16.0) g/dL Hct 42.8 (36-46) % MCV 91.5 (80-100) fL MCH 32.3 (26-34) PG MCHC 35.3 (30-36) % RDW 13.0 (11.6-14.8) % Plt Count 236 (150-400) X10^3/uL Neut % (Auto) 84.0 H (50-75) % Lymph % (Auto) 6.4 L (25-40) % Walton % (Auto) 6.1 (3-14) % Eos % (Auto) 2.6 (2-4) % Baso % (Auto) 0.9 (0-2) % Neut # (Auto) 6800 (5646-2230) /uL Lymph # (Auto) 500 L (1746-0529) /uL Walton # (Auto) 500 (0-900) /uL Eos # (Auto) 200 (0-450) /uL Baso # (Auto) 100 (0-100) /uL Sodium 137 (137-145) mmol/L Potassium 3.7 (3.4-5.1) mmol/L Chloride 100 (98-107) mmol/L Carbon Dioxide 28 (22-32) mmol/L BUN 13 (7-17) mg/dL Creatinine 0.58 (0.52-1.04) mg/dL Estimated GFR > 60 (>60) mL/min BUN/Creatinine Ratio 22.4 H (6-22) Glucose 112 H (80-110) mg/dL Calcium 9.7 (8.4-10.2) mg/dL Total Bilirubin 1.1 (0.2-1.3) mg/dL AST 26 (14-36) IU/L ALT 17 (<35) IU/L Alkaline Phosphatase 72 (38-126) U/L Total Protein 6.9 (6.3-8.2) g/dL Albumin 4.3 (3.5-5.0) g/dL Globulin 2.6 (1.7-4.1) g/dL Albumin/Globulin Ratio 1.7 (1.0-2.8) Urine Color Urine Appearance Urine pH (4.5-8.0) Ur Specific [place] (1.000-1.035) Urine Protein (Negative) Urine Glucose (UA) (Negative) g/dL Urine Ketones (NEGATIVE) Urine Occult Blood (Negative) Urine Nitrate (Negative) Urine Bilirubin (NEGATIVE) Urine Urobilinogen (0.2) E.U./dL Ur Leukocyte Esterase (NEGATIVE) Urine RBC (0-5/HPF) Urine WBC (0-5/HPF) Amorphous Sediment Urine Bacteria (None) Ur Culture Indicated? Micro UA Comment SARS-CoV-2 (PCR) Negative (Negative) 06/05/22 Range/Units 18:16 WBC (4.5-11.0) X10^3/uL RBC (4.0-5.2) X10^6/uL Hgb (12.0-16.0) g/dL Hct (36-46) % MCV (80-100) fL MCH (26-34) PG MCHC (30-36) % RDW (11.6-14.8) % Plt Count (150-400) X10^3/uL Neut % (Auto) (50-75) % Lymph % (Auto) (25-40) % [place] % (Auto) (3-14) % Eos % (Auto) (2-4) % Baso % (Auto) (0-2) % Neut # (Auto) (9292-2278) /uL Lymph # (Auto) (5693-4655) /uL [place] # (Auto) (0-900) /uL Eos # (Auto) (0-450) /uL Baso # (Auto) (0-100) /uL Sodium (137-145) mmol/L Potassium (3.4-5.1) mmol/L Chloride (98-107) mmol/L Carbon Dioxide (22-32) mmol/L BUN (7-17) mg/dL Creatinine (0.52-1.04) mg/dL Estimated GFR (>60) mL/min BUN/Creatinine Ratio (6-22) Glucose (80-110) mg/dL Calcium (8.4-10.2) mg/dL Total Bilirubin (0.2-1.3) mg/dL AST (14-36) IU/L ALT (<35) IU/L Alkaline Phosphatase (38-126) U/L Total Protein (6.3-8.2) g/dL Albumin (3.5-5.0) g/dL Globulin (1.7-4.1) g/dL Albumin/Globulin Ratio (1.0-2.8) Urine Color Yellow Urine Appearance Clear Urine pH 6.5 (4.5-8.0) Ur Specific [place] <=1.005 (1.000-1.035) Urine Protein Negative (Negative) Urine Glucose (UA) Negative (Negative) g/dL Urine Ketones Negative (NEGATIVE) Urine Occult Blood Negative (Negative) Urine Nitrate Negative (Negative) Urine Bilirubin Negative (NEGATIVE) Urine Urobilinogen 0.2 (0.2) E.U./dL Ur Leukocyte Esterase Negative (NEGATIVE) Urine RBC None seen (0-5/HPF) Urine WBC None seen (0-5/HPF) Amorphous Sediment 1+ Urine Bacteria None seen (None) Ur Culture Indicated? Cult not indicated Micro UA Comment Microscopic normal SARS-CoV-2 (PCR) (Negative) MDM Narrative Medical decision making narrative: Patient 8-year-old female who presents to the emergency room today with complaint of fall and history of multiple falls. Presents concerns with being able to live at home and take care of herself and would like some type of transfer to rehab facility for rehab before she returns home to try and take care of herself. We had a discussion with the social welfare administrator in the emergency room today in regards to possible transfer to a [place] for the patient per her inability to take care of herself. The social workers and still are possible ways to get this done she will need to evaluate the patient current insurance condition and consult from physical therapy in regards to this need. community action worker informed me that she is unable to have the patient referred to a [place] facility because the patient is not vaccinated and boosted for COVID at this time. The social welfare administrator will have a discussion with the patient. community action worker had a follow-up discussion with the patient informed the patient that found a [place] called [facility] that would take her without being vaccinated but the patient declined at this time. Patient states she wants to be discharged home and will weigh her care options later. Patient was discharged home. Dr Melara: Received turned over. Review patient's history and physical exam. Patient has been stable overnight. No issues. MRI ordered. Care turned over to Dr. Gallagher to follow-up and disposition. <Danica Gallagher MD - Last Filed: 06/06/22 17:41> Lab Data Labs: Lab Results 06/05/22 06/05/22 06/05/22 Range/Units 17:22 18:15 18:15 WBC 8.2 (4.5-11.0) X10^3/uL RBC 4.67 (4.0-5.2) X10^6/uL Hgb 15.1 (12.0-16.0) g/dL Hct 42.8 (36-46) % MCV 91.5 (80-100) fL MCH 32.3 (26-34) PG MCHC 35.3 (30-36) % RDW 13.0 (11.6-14.8) % Plt Count 236 (150-400) X10^3/uL Neut % (Auto) 84.0 H (50-75) % Lymph % (Auto) 6.4 L (25-40) % [place] % (Auto) 6.1 (3-14) % Eos % (Auto) 2.6 (2-4) % Baso % (Auto) 0.9 (0-2) % Neut # (Auto) 6800 (2719-2482) /uL Lymph # (Auto) 500 L (9298-0785) /uL Walton # (Auto) 500 (0-900) /uL Eos # (Auto) 200 (0-450) /uL Baso # (Auto) 100 (0-100) /uL Sodium 137 (137-145) mmol/L Potassium 3.7 (3.4-5.1) mmol/L Chloride 100 (98-107) mmol/L Carbon Dioxide 28 (22-32) mmol/L BUN 13 (7-17) mg/dL Creatinine 0.58 (0.52-1.04) mg/dL Estimated GFR > 60 (>60) mL/min BUN/Creatinine Ratio 22.4 H (6-22) Glucose 112 H (80-110) mg/dL Calcium 9.7 (8.4-10.2) mg/dL Total Bilirubin 1.1 (0.2-1.3) mg/dL AST 26 (14-36) IU/L ALT 17 (<35) IU/L Alkaline Phosphatase 72 (38-126) U/L Total Protein 6.9 (6.3-8.2) g/dL Albumin 4.3 (3.5-5.0) g/dL Globulin 2.6 (1.7-4.1) g/dL Albumin/Globulin Ratio 1.7 (1.0-2.8) Urine Color Urine Appearance Urine pH (4.5-8.0) Ur Specific [place] (1.000-1.035) Urine Protein (Negative) Urine Glucose (UA) (Negative) g/dL Urine Ketones (NEGATIVE) Urine Occult Blood (Negative) Urine Nitrate (Negative) Urine Bilirubin (NEGATIVE) Urine Urobilinogen (0.2) E.U./dL Ur Leukocyte Esterase (NEGATIVE) Urine RBC (0-5/HPF) Urine WBC (0-5/HPF) Amorphous Sediment Urine Bacteria (None) Ur Culture Indicated? Micro UA Comment SARS-CoV-2 (PCR) Negative (Negative) 06/05/22 Range/Units 18:16 WBC (4.5-11.0) X10^3/uL RBC (4.0-5.2) X10^6/uL Hgb (12.0-16.0) g/dL Hct (36-46) % MCV (80-100) fL MCH (26-34) PG MCHC (30-36) % RDW (11.6-14.8) % Plt Count (150-400) X10^3/uL Neut % (Auto) (50-75) % Lymph % (Auto) (25-40) % [place] % (Auto) (3-14) % Eos % (Auto) (2-4) % Baso % (Auto) (0-2) % Neut # (Auto) (3151-2134) /uL Lymph # (Auto) (8780-2176) /uL [place] # (Auto) (0-900) /uL Eos # (Auto) (0-450) /uL Baso # (Auto) (0-100) /uL Sodium (137-145) mmol/L Potassium (3.4-5.1) mmol/L Chloride (98-107) mmol/L Carbon Dioxide (22-32) mmol/L BUN (7-17) mg/dL Creatinine (0.52-1.04) mg/dL Estimated GFR (>60) mL/min BUN/Creatinine Ratio (6-22) Glucose (80-110) mg/dL Calcium (8.4-10.2) mg/dL Total Bilirubin (0.2-1.3) mg/dL AST (14-36) IU/L ALT (<35) IU/L Alkaline Phosphatase (38-126) U/L Total Protein (6.3-8.2) g/dL Albumin (3.5-5.0) g/dL Globulin (1.7-4.1) g/dL Albumin/Globulin Ratio (1.0-2.8) Urine Color Yellow Urine Appearance Clear Urine pH 6.5 (4.5-8.0) Ur Specific [place] <=1.005 (1.000-1.035) Urine Protein Negative (Negative) Urine Glucose (UA) Negative (Negative) g/dL Urine Ketones Negative (NEGATIVE) Urine Occult Blood Negative (Negative) Urine Nitrate Negative (Negative) Urine Bilirubin Negative (NEGATIVE) Urine Urobilinogen 0.2 (0.2) E.U./dL Ur Leukocyte Esterase Negative (NEGATIVE) Urine RBC None seen (0-5/HPF) Urine WBC None seen (0-5/HPF) Amorphous Sediment 1+ Urine Bacteria None seen (None) Ur Culture Indicated? Cult not indicated Micro UA Comment Microscopic normal SARS-CoV-2 (PCR) (Negative) Imaging Data MRI 04/20/22 (post op 03/18/22): Radiologist's Impression: FINDINGS:? Image quality:? Excellent.? ? Alignment and curvature:? There is normal bony alignment.? ? Marrow:? Marrow is of normal overall signal.? No acute vertebral body compression fractures.? No suspicious marrow enhancement.? ? Spinal cord:? Conus medullaris terminates at the L1 level.? Visualized spinal cord demonstrates normal signal, without suspicious enhancement.? ? Paraspinous soft tissues:? There is soft tissue enhancement along the left L4-5 surgical track in the posterior paraspinal soft tissues, within expected limits ? T12-L1:? Normal appearance.? ? L1-L2:? Normal appearance.? ? L2-L3:? Normal appearance.? ? L3-L4:? Normal appearance.? ? L4-L5:? Prior left hemilaminectomy noted.? There is enhancement of the dorsal epidural space with thickening measuring up to 3 mm resulting in [id number] central stenosis.? Moderate right and no left foraminal stenosis ? L5-S1:? Disc space narrowing and posterior disc bulge without central or foraminal stenosis ? ? IMPRESSION:? ? 1. L4-5 dorsal epidural soft tissue thickening and enhancement status post left hemilaminectomy.? While this could reflect postoperative enhancement, dorsal epidural hematoma or less likely developing phlegmon or abscess would also be a differential depending on the surgical timing and clinical findings.? Consider short-term interval follow-up and/or neuro surgical consultation. ? Approved by: Fermin Live M.D. on 04/21/2022 at 17:07? MRI thorasic spine: Radiologist's Impression: FINDINGS:? Image quality:? Significant motion is present limiting areas of fine detail evaluation. ? Alignment and curvature:? There is normal bony alignment.? ? Marrow:? Marrow is of normal overall signal.? No acute vertebral body compression fractures. ? Spinal cord:? Visualized spinal cord demonstrates and enhancing mass measuring 1.6 x 1.3 x 2.1 cm at the level of T3-4.? It is causing spinal stenosis at this level.? It is suspected to be extra medullary.? However, definitive characterization is limited secondary to significant motion artifact. ? Paraspinous soft tissues:? No paravertebral masses or abnormal enhancement.? ? Miscellaneous:? Foramina appear widely patent at all scanned levels.? Multilevel disc desiccation is present. ? IMPRESSION:? ? Significantly limited exam secondary to motion. ? Enhancing mass as described above at the level of T3-4 causing spinal stenosis.? Secondary to degradation of images by motion, it is difficult to discern if this is intramedullary or extramedullary, although extra medullary is favored and potentially representing meningioma.? Repeat exam with sedation for better characterization of lesion is recommended if indicated and/or neurosurgery consult. ? ? Dictated by: Mary Deleon M.D. on 06/06/2022 at 8:53 ? ? XR thorasic and lumbar spine: Radiologist's Impression: FINDINGS:? ? Bones:? No fractures or dislocations.? No suspicious bony lesions.? 12 pairs of ribs are noted, and appear intact where visualized.? ? Soft tissues:? No paravertebral stripe thickening.? ? ? IMPRESSION:? Unremarkable thoracic spine radiographs ? ? ? Approved by: Fermin Live M.D. on 06/05/2022 at 17:11? FINDINGS:? ? Bones:? 5 [id number] vertebrae are present.? There is normal bony alignment.? No vertebral body compression fractures.? No suspicious bony lesions.? Disc space n arrowing and hypertrophic facet joints in the lower lumbar spine ? Soft tissues:? Overlying bowel gas pattern is normal.? No suspicious soft tissue calcifications.? ? ? IMPRESSION:? 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 ? ? Approved by: Fermin Live M.D. on 06/05/2022 at 17:06? MRI lumbar 06/05/22: Radiologist's Impression: FINDINGS:? Image quality:? Significant motion is present on multiple images, limiting areas of fine detail evaluation. ? Alignment and curvature:? There is normal bony alignment.? ? Marrow:? Marrow is of normal overall signal.? No acute vertebral body compression fractures.? No suspicious marrow enhancement.? ? Spinal cord:? Conus medullaris terminates at the L1-2 level.? Visualized spinal cord demonstrates normal signal, without suspicious enhancement.? ? Paraspinous soft tissues:? No paravertebral masses or abnormal enhancement.? ? Discs: Moderate multilevel disc desiccation is present. ? Severe motion artifact is present at multiple levels particularly on the axial images.? There is left hemilaminectomy noted at L4-5 better appreciated on prior exam.? There is overall an appearance from sagittal view of mild spinal stenosis at L4-5.? Foraminal narrowing also appears to be most prominent at L4-5. ? No areas of abnormal enhancement are identified. ? IMPRESSION:? ? Significantly limited exam secondary to motion. ? Overall, findings appear relatively stable compared to 04/20/2022.? However, if concern persists, repeat study is highly recommended as current exam borders nondiagnostic. ? Dictated by: Mary Deleon M.D. on 06/06/2022 at 9:43 ? ? MDM Narrative Medical decision making narrative: Patient 8-year-old female who presents to the emergency room today with complaint of fall and history of multiple falls. Presents concerns with being able to live at home and take care of herself and would like some type of transfer to rehab facility for rehab before she returns home to try and take care of herself. We had a discussion with the social welfare administrator in the emergency room today in regards to possible transfer to a [place] facility for the patient per her inability to take care of herself. The social workers and still are possible ways to get this done she will need to evaluate the patient current insurance condition and consult from physical therapy in regards to this need. community action worker informed me that she is unable to have the patient referred to a [place] facility because the patient is not vaccinated and boosted for COVID at this time. The social welfare administrator will have a discussion with the patient. community action worker had a follow-up discussion with the patient informed the patient that found a [place] [facility] [place] facility called [facility] that would take her without being vaccinated but the patient declined at this time. Patient states she wants to be discharged home and will weigh her care options later. 4pm as discharge plans were being finalized, it became clear that there was more to her situation and her clinical case was changing. Full care, rather than oversight, is assumed and patient is independently examine. She was no longer able to void. [place] that she needed to and could not do so. Physical therapy assessment was that she needed a Aj lift for transferring in any way. Blood pressure remained dramatically elevated. Patient was reexamined. She is given her usual blood pressure medications. She allows me to do a more thorough exam and she has tenderness in the mid thoracic region and quite a bit of bruising over the lumbar sacral area. There is no obvious redness. Her neurologic exam is complex to begin. Her left leg is essentially no movement or sensation and she uses a physical therapy belt to help manipulate that leg and has done so for quite a while. That leg is also relatively cool with decreased capillary refill compared to the right leg. Again this is baseline. The right leg now has essentially no movement at all which is a wor sening finding and new over the last 12 hours and new since her recent falls in the last 18 hours. Sensation is decreased but she does believe it is at her baseline. Bladder scan reveals 800 cc in her bladder. Melendez catheter is placed with relief of abdominal pain. At this point, with progressive weakness and acute urinary retention despite her desire to go home additional workup is required. MRI of the thoracic and lumbar spine is ordered and will be facilitated 1st thing in the morning. Additional medical workup as well is initiated. There is no evidence of acute infection, significant metabolic abnormalities or acute urinary tract infection. Given the fact that she is essentially paraplegic at this point with the progressive weakness and now the acute urinary retention discharge home is not safe and she has stay in the emergency department until we can obtain an MRI and from there, appropriate and safe discharge planning. Additional details: perineural cyst and L5-S1 laminectomy 03/17. Poor progression with home PT with progressive weakness. Increased Right knee pain (MRI 08/24) shows a complex tear of the lateral meniscus as well as the posterior on, large Babcock cyst, and knee joint effusion. With her fall yesterday she notes that she landed with both knees completely flexed beneath her with her weight resting on the fully flexed knees. Dr Melara: Received turned over. Review patient's history and physical exam. Patient has been stable overnight. No issues. MRI ordered. Care turned over to Dr. Gallagher to follow-up and disposition. 06/06/22 7am Care is reestablished. Patient is currently in MR. Morning meds as well as breakfast been ordered. Will re-evaluate when she is back in her room Spasm in the right lower extremity has slightly improved this morning. Still has significant weakness and has difficulty even adjusting her bottom in the bed to reposition herself. Upper extremity strength is not enough to help assist much. She notes that Dr. Wade Briones with neurosurgery in telling him did her lumbar surgery. Will PACs the MRI up to [facility] and contact Dr Briones 1245 Pt updated with plan. Due to complexity of postoperative recovery Dr. Briones felt that transfer to the [facility] would be more appropriate. He was going to talk to neurosurgeons there. Independently called the patient and let her know she was going to be going down to the [facility] and has also talked to her son to let him know of the plan. Spoke with transfer center who needs additional information and plan will call back after talking with neurosurgeons and with bed availability. 345pm Dr Frandy Meléndez, neurosurgeon accepting at [facility]. Awaiting bed availablity. 4pm requests ED to ED transfer, we will arrange for BLS transport. <Danica Gallagher MD - Last Filed: 06/06/22 17:41> Critical Care Time Critical Care Time: Yes Total Critical Care Time: 69 Attestation: Critical care time is separate from other billable procedures. There is a high probability of a significant, sudden or life-threatening deterioration that requires my full and direct attention, intervention and personal management. This critical care time includes consultation with family and other consulting doctors, review of records, and interpretation of data from labs, EKGs and imaging as well as managements of acute neurologic deterioration and discussion with multiple consultants Discharge Plan Departure Patient Disposition: [facility] Clinical Impression: Mass of spinal cord, Acute urinary retention, Right leg weakness, Frequent falls, Acute pain of right knee Fall Qualifiers: Encounter type: initial encounter Qualified Code(s): W19.XXXA - Unspecified fall, initial encounter Spinal stenosis Qualifiers: Spinal region: thoracic Qualified Code(s): M48.04 - Spinal stenosis, thoracic region Activity Restrictions/Additional Instructions: *You have been diagnosed with right leg pain status post. The social welfare administrator has finally they have been working with her in regards to on most appropriate place for you to be discharged. community action worker informed me that there is a [place] facility that will take you and you decided he wanted to go home at this time he will consider that in the future. I am discharging home I suggest you follow-up with your primary care provider in regards to physical therapy and other nonemergent concerns. Please return to the emergency room if any emergent concerns arise. [ ] *What to do: *Please continue to take your regular medications as directed. [ ] New medication prescriptions sent to your pharmacy: [ ] [ ] New medication written as a paper prescription [x] No new medications given *Please follow up with your primary care provider in 2-3 days, call for an appointment. Let them know you were seen in the Emergency Department and that we ask that you be seen in follow up. We will electronically transmit a record of today's note if your PCP is in our system *If you do not have a primary care provider please contact the [facility] Resource line at [phone]. They will ask some questions about your medical history and help get you set up with a doctor in the community. *Return to Emergency Department if you should have any new, worsening or concerning symptoms, such as [fever greater than 101 F, shaking chills, worsening pain, persistent vomiting or other bothersome symptoms] Prescriptions: No Action Vitamin D3 See Rx Instructions .ROUTE .COMPLEX Label Comments: 2,000 IU PO QDAY ; Rx Instructions: 2,000 IU PO QDAY ; Vitamin B Complex See Rx Instructions .ROUTE .COMPLEX Label Comments: 1 TAB PO QDAY ; Rx Instructions: 1 TAB PO QDAY ; Ibuprofen See Rx Instructions .ROUTE .COMPLEX Label Comments: 200 mg PO HS PRN ; Rx Instructions: 200 mg PO HS PRN ; metoprolol tartrate 25 mg tablet 25 mg PO BID Qty: 180 3RF Ashwaganda See Rx Instructions .ROUTE .COMPLEX Label Comments: 1 capsules PO QDAY ; Rx Instructions: 1 capsules PO QDAY ; red clover leaf extract 500 mg tablet PO calcium carbonate [Tums] 300 mg (750 mg) tablet,chewable 600 mg PO BID Label Comments: Bone health regimen with Vitamin D3 4000iu daily cholecalciferol (vitamin D3) 125 mcg (5,000 unit) capsule 125 mcg PO DAILY valsartan-hydrochlorothiazide 320-25 mg tablet See Rx Instructions .ROUTE .COMPLEX Qty: 90 3RF Dose Instruction: TAKE 1 TABLET BY MOUTH EACH DAILY FOR HYPERTENSION Rx Instructions: TAKE 1 TABLET BY MOUTH EACH DAILY FOR HYPERTENSION ascorbate calcium (vitamin C) 500 mg tablet 500 mg PO DAILY baclofen 5 mg tablet 5 mg PO BID PRN (Reason: muscle spasms) Qty: 60 1RF Rx Instructions: Take 1 tab up to twice per day for muscle spasms Referrals: Macey Unger ARNP [Primary Care Provider] -
--- NOTE | 2022-06-05 15:30 | PT.IIE ---
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 Colon cancer screening Depression Eczema Foot pain (1984) Foraminal stenosis due to intervertebral disc disease Fractures (~1989) Hypertension Left leg weakness Lumbar region somatic dysfunction Measles Mumps Osteoarthritis Osteopenia Other salvage determiner (current) drug therapy Pelvic somatic dysfunction Perineural cyst Sacral region somatic dysfunction Screening for osteoporosis Physical Therapy Inpatient Evaluation/Re-Eval M1 PT/OT-IP Prior Functional Status Start: 06/05/22 13:55 Freq: Status: Active Protocol: Document 06/05/22 15:30 AW (Rec: 06/05/22 16:46 AW [id number]) Medical Review Prior Functional Status Medical History Reviewed Yes Communication WNL. Pt is an effective verbal communicator. Mobility and Gait Mirela had perineural cyst excision and L5-S1 laminectomy in March. She has been using a 4WW as a wheelchair. Alternatively, she has a manual wheelchair for longer distances which she can propel with her arms. She was able to stand and transfer with 4WW until today. She has been unable to walk at all for about a month. Activities of Daily Living and IADL's Pt states she can dress herself, has a HH bath aide to assist with showers, and has been needing assist to transfer to the toilet. Her son, Sim assists when he can but works and part of Monday. Granddaughters have been helping out with cleaning at home. Prior Functional Level (Other details) Pt has active HH and has been working on transfers and standing with PT. Social History Household Members family Living Arrangements House Number of Floors (Floors) One Floor Number of Stairs To Enter/Railing? Ramped entry Home Environment High Toilet,Ramp Home Equipment Four Wheel Walker,Manual Wheelchair,Leg Supervisor Plastering Additional Social History Comment Pt has a toilet safety frame. She lives with her son, Sim, who works full-time. Her son, Harvey, lives nearby. M2 PT-IP Current Condition Start: 06/05/22 13:55 Freq: Status: Active Protocol: Document 06/05/22 15:30 AW (Rec: 06/05/22 16:46 AW [id number]) Physical Therapy Current Condition Current Condition Evaluation Date 06/05/22 Treatment Diagnosis BLE weakness, falls; impaired mobility and gait Onset Date 05/05/22 M3 PT-IP Subjective Start: 06/05/22 13:55 Freq: Status: Active Protocol: Document 06/05/22 15:30 AW (Rec: 06/05/22 16:46 AW [id number]) Subjective Physical Therapy Visit Type Type Initial Evaluation Visit Start Time 14:51 Visit Stop Time 15:30 Total Visit Minutes 39 Notes Pt's son and young granddaughters were present throughout. Physical Therapy Visit Comments Patient Comments Pt is discouraged but willing to participate with PT Patient Goals Improve strength to be able to take care of herself. Therapy Pain Assessment Pain When Pain Assessed During Mobility Pain Present Pain Present Pain Reported Location back Scale Used not quantified Pain Behaviors Facial Grimacing,Guarding, Holding Area,Wincing Pain Management Techniques Modification of Treatment,Re- positioning M4 PT-IP Mobility and Gait Start: 06/05/22 13:55 Freq: Status: Active Protocol: Document 06/05/22 15:30 AW (Rec: 06/05/22 16:46 AW [id number]) PT-Bed Mobility Assessment Supine to Sit Supine to Sit Maximum Assistance,1 Person Assistance,Head of Bed Elevated,Bedrails Sit to Supine Sit to Supine Total Assistance,1 Person Assistance,2 Person Assistance Scooting Scooting to Edge of Bed Maximum Assistance Scooting Up and Down in Bed Maximum Assistance PT-Transfer Assessment Sit to and From Stand Sit to and from Stand Maximum Assistance,Total Assistance,1 Person Assistance ,Use of Upper Extremities Equipment Transfer Assistive Device Gait Belt,Front Wheeled Walker Orthotic/Prosthetic Devices or Brace: No Transfers Transfer Technique unable to transfer Comments Mobility Comments Pt was lying on the ED gurney as PT arrived. BP 232/104 HR 62 SpO2 99% on room air. Pt uses a leg propagation worker attached to her left thigh; she pulls with UE's to move her left leg at the hip. She was able to use her leg propagation worker to abduct her LLE toward EOB. PT assisted with RLE to move. Max A for BLE movement and trunk righting to sit up at the edge of bed. BP 242/109 HR 76. Attempted to consult with ED provider regarding BP but nearly all staff were involved in a trauma room. Pt needed max A to scoot toward EOB and she complained of RLE spasm. Pt stated she may need to use the toilet. PT brought BSC to bedside. PT educated pt on positioning RLE to improve weight acceptance. Tactile and verbal cues were needed to keep RLE planted as pt attempted to stand max/total A with FWW but was unable to effectively extend knees or hips. Pt attempted positioning BLE and leaning forward for weight acceptance several times but was limited by weakness and fear of falling. On last attempt, pt felt she was sliding forward toward the floor. PT blocked pt's knees and used gait belt to shift her hips further back on the gurney. Pt was tearful and requested return to supine. Max/total A x 1-2 for return to supine. Max A and cues for pt to plant R foot and use bed rails to slide toward HOB. Pt was left with call light in reach. Gait Assessment Comments Gait Comments Pt is unable to progress to ambulation at this time. Stair Climbing Assessment Comments Stair Climbing Comments Not assessed. Pt uses a ramped entry at home. PT-Balance Assessment Sitting Balance and Reactions Static Sitting Balance Ability Fair Dynamic Sitting Balance Ability Fair Standing Balance and Reactions Static Standing Balance Ability Poor Dynamic Standing Balance Ability Poor Device Used FWW M5 PT-IP Objective Assessments Start: 06/05/22 13:55 Freq: Status: Active Protocol: Document 06/05/22 15:30 AW (Rec: 06/05/22 16:46 AW [id number]) Orientation Orientation/Cognition Level of Alertness Alert Orientation Name,Day of Week,Place, Situation Safety Awareness Understands Safety Issues Gross Range of Motion Upper Extremity ROM Assessment Within Functional Limits Lower Extremity ROM Assessment Within Functional Limits Impairments BLE PROM WFL. Strength Upper Extremity Strength Assessment Within Functional Limits Lower Extremity Strength Assessment Bilaterally Impaired Hip L 2/5; R 3+/5 Knee L 3/5; R 3+/5 Ankle L 3-/5; R 4-/5 Sensation Assessment Sensation Gross Sensation Right LE Impaired,Left LE Impaired Light Touch Impaired Proprioception (Position) Impaired Comments Sensation Comments Dull light touch sensation BLE with left more affected than right Muscle Tone Muscle Tone WNL No Muscle Tone Location Left Lower Extremity Type of Tone Hypotonicity Severity of Tone Severe M6 PT-IP Treatment Start: 06/05/22 13:55 Freq: Status: Active Protocol: Document 06/05/22 15:30 AW (Rec: 06/05/22 16:46 AW [id number]) Physical Therapy Treatment Education Education Provided Safety M7 PT-IP Assessment and Plan Start: 06/05/22 13:55 Freq: Status: Active Protocol: Document 06/05/22 15:30 AW (Rec: 06/05/22 16:46 AW [id number]) PT Summary Assessment and Plan Potential Rehabilitation Potential Fair Status of Condition at Evaluation Evolving Summary Impairments Pain,ROM,Strength,Balance, Sensation,Tone,Bed Mobility, Transfers,Gait Assessment Summary Mirela is a 76 yo woman with history of L5-S1 perineural cyst removal and laminectomy in March 2022. She reports modified independent mobility ~1 month ago using 4WW to transfer and to ambulate short distances. She uses a wheelchair for longer distances. On assessment today , pt presents with severe LLE weakness primarily affecting hip and ankle. She is using a leg propagation worker to move her left leg with her arms. She needs max assist for bed mobility and is unable to effectively extend her knees or hips to stand. She is unable to transfer. She is not safe to progress to ambulation. In addition, pt's BP did not fall below 221/105 during this evaluation. RN was informed. In the context of debility compared with recent baseline, PT recommends SNF rehab to restore strength and improve mobility. Goals Bed Mobility Goal Minimal Assistance Transfer Goal Minimal Assistance,Front Wheeled Walker Gait Goal Minimal Assistance,Front Wheel Walker Gait Distance 20 Other Goals - improve transfers and gait to CGA with LRAD Days to Meet Goals 10 Frequency of Treatment Frequency Of Treatment Once a Day Treatment Plan Physical Therapy Treatment Plan Bed Mobility Training,Transfer Training,Gait Training, Therapeutic Exercise,Balance Retraining,Discharge Planning, Hot or Cold Pack,Neuromuscular Re-ed Other Recommendations and Next Treatment bed mobility, transfers, ther Focus ex Precautions Other Precautions falls Recommendations To Nursing Amount of Assist Needed Mechanical Lift Discharge Recommendations PT Discharge Recommendations SNF Rehab Transportation Needs at Discharge Wheelchair/Cabulance,Stretcher /Ambulance
--- NOTE | 2022-06-05 16:52 | CM.SWNOTE ---
shine worker met with patient and patient's son at bedside. Patient explained she is having difficulty with transfers at this time and feels as though HH PT & OT hasn't been able to progress her. [facility] currently in home twice weekly for PT as well as bath aide. Patient was requesting assistance in transfering to SNF for short term rehab. In discussion with patient around options, patient indicated she is not covid vaccinated and does not wish to be at this time. Due to vaccine requirements for most SNFs, patient has limited options for SNF. [facility] contacted who indicated they are at capacity and do not expect discharges until later this coming week. Patient notified that there is not an opening at [facility] in the immediate future. Patient was less interested in SNF once learning this facility was her option due to distance from her family. shine worker did check with [facility] who reported they do not have capacity for patient that requires covid isolation/quarantine room at this time. Other options discussed were patient returning home to find additional caregiving in home. Patient reported having assests to self pay for this as well as self pay for [facility] or SNF if needed. She would prefer to use her medicare and LTC insurance policy. Patient completed PT eval recommending SNF level of care. Patient opted to discharge home to follow up with [facility] in community around vaccine requirements (child protective services social worker attempted this but was not able to talk with admissions staff at any of the local facilities due to it being Monday). Patient was provided with [facility] resource booklet with caregiving companies to contact, list of [facility] in community, Communication Assistant Care [facility]visors information to contact to help with placement search. Patient reported she plans to follow up with her PCP as well as with resources provided. Attending and assigned nurse notified as well re plan for discharge home at patient's request. Stefan BRYANSW
--- NOTE | 2022-06-05 17:05 | DI.RAD.S_ITS ---
PROCEDURE: XR LUMBAR SPINE 2-3V INDICATIONS: fall, new weakness Right leg TECHNIQUE: 3 views of the lumbar spine were acquired. COMPARISON: None. FINDINGS: Bones: 5 kpx-rmw-glwsemv vertebrae are present. There is normal bony alignment. No vertebral body compression fractures. No suspicious bony lesions. Disc space narrowing and hypertrophic facet joints in the lower lumbar spine Soft tissues: Overlying bowel gas pattern is normal. No suspicious soft tissue calcifications. 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 on 06/05/2022 at 17:06
--- NOTE | 2022-06-05 17:28 | PC.NURSE ---
pt unable to stand and transfer, unable to bear weight. bladder scan 880mL. pt assisted to bed hussein, unable to void freely. okay from provider to place dubon catheter. 16fr FC placed @ 1720 for urinary retention. provider aware of pt's elevated blood pressures. pt is asymptomatic, denies CP/dizziness/SOB/BULOLCK/blurry vision.
[2022-06-05 17:44] LABS: COVID19 -Nasal RAPID Negative (Negative)
[2022-06-05] MEDS: hydroCHLOROthiazide 25 MG TABLET PO (18:11)
[2022-06-05] MEDS: VALSARTAN 80 MG TABLET 320 MG PO (18:11)
[2022-06-05 18:19] LABS: Appearance Urine UA CLEAR; Bilirubin Urine UA NEGATIVE (NEGATIVE); Color Urine UA YELLOW; Glucose Urine UA NEGATIVE (Negative); Ketones Urine UA NEGATIVE (NEGATIVE); Leukocyte Esterase Urine UA NEGATIVE (NEGATIVE); Nitrite Urine UA NEGATIVE (Negative); Occult Blood Urine UA NEGATIVE (Negative); Protein Urine UA NEGATIVE (Negative); Specific Gravity Urine UA <=1.005 (1.000-1.035); Urobilinogen Urine UA 0.2 E.U./dL (0.2)
[2022-06-05 18:20] LABS: pH Urine UA 6.5 (4.5-8.0)
[2022-06-05 18:24] LABS: Add Manual Diff / Slide Review NO; Basophils Absolute Auto 100 /uL (0-100); Basophils Percent Auto 0.9 % (0-2); Eosinophils Absolute Auto 200 /uL (0-450); Eosinophils Percent Auto 2.6 % (2-4); Hematocrit 42.8 % (36-46); Hemoglobin 15.1 g/dL (12.0-16.0); Lymphocytes Absolute Auto 500 /uL (1100-4500); Lymphocytes Percent Auto 6.4 % (25-40); Mean Corpuscular HGB Conc 35.3 % (30-36); Mean Corpuscular Hemoglobin 32.3 PG (26-34); Mean Corpuscular Volume 91.5 fL (80-100); Monocytes Absolute Auto 500 /uL (0-900); Monocytes Percent Auto 6.1 % (3-14); Neutrophils Absolute Auto 6800 /uL (1500-7000); Platelet Count 236 X10^3/uL (150-400); Red Blood Cell Count 4.67 X10^6/uL (4.0-5.2); White Blood Cell Count 8.2 X10^3/uL (4.5-11.0)
[2022-06-05 18:25] LABS: Amorphous Sediment Urine 1+; Bacteria Urine None Seen; Culture Indicated Urine Cult Not Indicated; RBC Urine None Seen (0-5/HPF); Urine Comments Microscopic Normal; WBC Urine None Seen (0-5/HPF)
[2022-06-05 18:34] LABS: Alanine Aminotransferase 17 IU/L (<35); Albumin 4.3 g/dL (3.5-5.0); Albumin Globulin Ratio 1.7 (1.0-2.8); Alkaline Phosphatase 72 U/L (38-126); Aspartate Aminotransferase 26 IU/L (14-36); BUN Creatinine Ratio 22.4 (6-22); Bilirubin Total 1.1 mg/dL (0.2-1.3); Blood Urea Nitrogen 13 mg/dL (7-17); Calcium 9.7 mg/dL (8.4-10.2); Carbon Dioxide 28 mmol/L (22-32); Chloride 100 mmol/L (98-107); Estimated Glomerular Filt Rate > 60 mL/min (>60); Globulin 2.6 g/dL (1.7-4.1); Glucose 112 mg/dL (80-110); HEMOLYSIS < 15 (0-50); Potassium 3.7 mmol/L (3.4-5.1); Sodium 137 mmol/L (137-145); Total Protein 6.9 g/dL (6.3-8.2)
--- NOTE | 2022-06-05 18:35 | DI.MRI.S_ITS ---
PROCEDURE: MR THORACIC SPINE WO/W CON INDICATIONS: weakness with T/L pain and urinary retention TECHNIQUE: Noncontrast sagittal T1 spin echo and T2 fast spin echo, sagittal STIR, axial T1 and T2 fast spin echo through the thoracic spine. After the administration of contrast, axial and sagittal T1 spin echo with fat saturation through the thoracic spine. COMPARISON: [facility], MR, MR LUMBAR SPINE WO/W CON, 06/06/2022, 6:21. FINDINGS: Image quality: Significant motion is present limiting areas of fine detail evaluation. Alignment and curvature: There is normal bony alignment. Marrow: Marrow is of normal overall signal. No acute vertebral body compression fractures. Spinal cord: Visualized spinal cord demonstrates and enhancing mass measuring 1.6 x 1.3 x 2.1 cm at the level of T3-4. It is causing spinal stenosis at this level. It is suspected to be extra medullary. However, definitive characterization is limited secondary to significant motion artifact. Paraspinous soft tissues: No paravertebral masses or abnormal enhancement. Miscellaneous: Foramina appear widely patent at all scanned levels. Multilevel disc desiccation is present. IMPRESSION: Significantly limited exam secondary to motion. Enhancing mass as described above at the level of T3-4 causing spinal stenosis. Secondary to degradation of images by motion, it is difficult to discern if this is intramedullary or extramedullary, although extra medullary is favored and potentially representing meningioma. Repeat exam with sedation for better characterization of lesion is recommended if indicated and/or neurosurgery consult. Dictated by: Mary Deleon M.D. on 06/06/2022 at 8:53 Approved by: Mary Deleon M.D. on 06/06/2022 at 9:42
--- NOTE | 2022-06-05 23:30 | PC.NURSE ---
Patient complaining of worsening back pain, requesting pain medication. Patient assisted with repositioning, turned onto left side, using pillow.
[2022-06-05] MEDS: ACETAMINOPHEN 325 MG TABLET 650 MG PO (23:48)
[2022-06-06] MEDS: LORazepam 2 MG/ML INJ 1 MG IV (06:58)
[2022-06-06 08:53] VITALS: BP 118/66; PULSE 95; RESP 18; TEMP 36; O2SAT 96
--- NOTE | 2022-06-06 09:11 | PC.NURSE ---
800 cc of urine drained immediately after placement of urinary catheter
[2022-06-06] MEDS: VALSARTAN 80 MG TABLET 320 MG PO (09:20)
[2022-06-06] MEDS: hydroCHLOROthiazide 25 MG TABLET PO (09:20)
[2022-06-06] MEDS: METOPROLOL IR 25 MG TABLET PO (09:22)
[2022-06-06 12:07] VITALS: BP 122/61; PULSE 90; RESP 18; O2SAT 98
--- NOTE | 2022-06-06 13:26 | PT-IP ANOTE ---
Pt had MRI this AM revealing enhancing mass at T3-4 which is characterized as extramedullary - possibly meningioma. She has had urinary retention and new onset RLE hemiparesis which is a change in condition compared with PT evaluation yesterday. Pt is to be transferred to for neurosurgery. Discharge from inpatient PT service at this time.
[2022-06-06 15:14] VITALS: BP 148/78; PULSE 75; TEMP 36.7; O2SAT 98
--- NOTE | 2022-06-06 18:12 | PC.NURSE ---
Pt bag with clothes and personal items sent with pt. pt son took home pt's wheelchair
== END 2022-06-06 18:00 | disposition short-term general hospital (02) ==
PROVIDERS: Emergency Provider Emergency Medicine; PCP Nurse Practitioner
DX: G95.89 Other specified diseases of spinal cord (principal); M48.00 Spinal stenosis, site unspecified; R33.8 Other retention of urine; R29.898 Other symptoms and signs involving the musculoskeletal system; M25.561 Pain in right knee; R29.6 Repeated falls; Z20.822 Contact with and (suspected) exposure to COVID-19; W18.11XA Fall from or off toilet without subsequent striking against object, initial encounter
CPT/HCPCS: 36415; 72070; 72100; 72157; 72158; 80053; 81001; 85025; 87635; 96374; 97163; 99285; 99291; C9803; J2060

== ENCOUNTER → 2023-01-18 11:31 | Outpatient (CLI) | payer MEDICARE, SELFPAY ==
--- NOTE | 2023-01-18 11:32 | DI.MRI.S_ITS ---
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 After the administration of contrast, axial and sagittal T1 spin echo with fat saturation through the thoracic spine. COMPARISON: [facility], CR, XR THORACIC SPINE 2V, 06/05/2022, 17:31. [facility], MR, MR THORACIC SPINE WO/W CON, 06/06/2022, 6:21. [facility], MR, MR CERVICAL SPINE WO/W CON, 01/18/2023, 11:42. [facility], MR, MR LUMBAR SPINE WO/W CON, 01/18/2023, 11:42. FINDINGS: Image quality: There is artifact associated with the metallic hardware. This examination is limited by involuntary motion artifact. Alignment and curvature: Accentuated thoracic kyphosis is seen. No focal AP alignment abnormality is seen. Marrow: Marrow is of normal overall signal. No acute vertebral body compression fractures. Spinal cord: Visualized spinal cord is of normal signal and size, without abnormal enhancement. Paraspinous soft tissues: An expected amount of edema and irregularity can be seen within the postoperative region superiorly and posteriorly.. Miscellaneous: Postoperative changes are seen, with bilateral pedicle screws T2 through T5. The previously seen mass centered at the T3-T4 level is no longer seen. The postcontrast images are highly limited by susceptibility artifact through this region, and so evaluation for a residual enhancing mass is highly limited. To the limits of this study, no abnormal enhancement can be seen. IMPRESSION: Postoperative study within normal limits, with the previously seen mass no longer seen. Dictated by: Kalin Ovalle M.D. on 01/18/2023 at 14:42 Approved by: Kalin Ovalle M.D. on 01/18/2023 at 14:47
--- NOTE | 2023-01-18 11:32 | DI.MRI.S_ITS ---
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 After the administration of contrast, axial and sagittal T1 spin echo with fat saturation through the cervical spine. COMPARISON: None. FINDINGS: Image quality: This examination is limited by involuntary motion artifact. Alignment and curvature: There is normal bony alignment. Marrow: Marrow is normal in overall signal, without suspicious enhancement. Spinal cord: Visualized spinal cord has normal size and signal. No cerebellar tonsillar herniation. No abnormal intramedullary enhancement. Paraspinous soft tissues: No paravertebral masses or suspicious enhancement. C2-3: Moderate loss of disc height is seen. Loss of disc signal is seen. Mild to moderate disc osteophyte complex is seen. There is mild right-sided and wrxi-yf-ioxudwnn left-sided facet hypertrophy. There is moderate to severe left-sided and moderate right-sided neural foraminal narrowing. Mild central canal narrowing is seen. C3-4: Moderate loss of disc height is seen. Loss of disc signal is seen. Moderate generalized disc osteophyte complex is seen. There is moderate right-sided and prominent left-sided facet hypertrophy. There is moderate to severe bilateral neural foraminal narrowing seen, left worse than right. Mild central canal narrowing is seen. C4-5: Cgfq-nf-rclyxctl loss of disc height and disc signal can be seen. Moderate generalized disc osteophyte complex is seen. There is kpws-sb-eujihynh right-sided and prominent left-sided facet hypertrophy. There is moderate to severe left-sided and jfuf-rk-fmxmmnad right-sided neural foraminal narrowing. No central canal narrowing is seen. C5-6: Moderate to severe loss of disc height and disc signal can be seen at this level. There is at least moderate disc osteophyte complex seen, which is eccentric to the left. Uncovertebral joint hypertrophy is seen at this level. Moderate facet joint hypertrophy is seen. There is moderate to severe bilateral neural foraminal narrowing seen, left worse than right. Moderate central canal narrowing is seen. C6-7: Moderate to severe loss of disc height and disc signal can be seen. Moderate disc osteophyte complex is seen, which is eccentric to the left. Moderate facet hypertrophy is seen, left worse than right. There is moderate to severe left-sided and moderate right-sided neural foraminal narrowing. Moderate central canal narrowing is seen. C7-T1: Moderate loss of disc height is seen. Loss of disc signal is seen. A mild degree of generalized disc osteophyte complex is seen. Moderate facet joint hypertrophy is seen. Moderate bilateral neural foraminal narrowing is seen. The central canal is widely patent. Upper thoracic spine fixation hardware is noted. IMPRESSION: No masses or abnormal enhancement can be seen within the cervical spine. Upper thoracic spine fixation hardware can be seen. Multiple levels of cervical spine degenerative change can be seen. Dictated by: Kalin Ovalle M.D. on 01/18/2023 at 14:53 Approved by: Kalin Ovalle M.D. on 01/18/2023 at 14:58
--- NOTE | 2023-01-18 11:32 | DI.MRI.S_ITS ---
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 In cases with scoliosis, additional coronal T2 fast spin echo may be performed. After the administration of contrast, sagittal and axial T1 spin echo with fat saturation through the lumbar spine. COMPARISON: [facility], MR, MR LUMBAR SPINE WO/W CON, 04/20/2022, 18:49. [facility], CR, XR LUMBAR SPINE 2-3V, 06/05/2022, 17:31. [facility], MR, MR CERVICAL SPINE WO/W CON, 01/18/2023, 11:42. [facility], MR, MR THORACIC SPINE WO/W CON, 01/18/2023, 11:42. [facility], MR, MR LUMBAR SPINE WO/W CON, 06/06/2022, 6:21. FINDINGS: Image quality: This examination is limited by involuntary motion artifact. Alignment and curvature: There is minimal anterolisthesis seen at the L5-S1 level. Marrow: Marrow is of normal overall signal. No acute vertebral body compression fractures. No suspicious marrow enhancement. Spinal cord: Conus medullaris terminates at the L1 level. Visualized spinal cord demonstrates normal signal, without suspicious enhancement. Paraspinous soft tissues: No paravertebral masses or abnormal enhancement. T12-L1: Normal appearance. L1-L2: The disc height is well-preserved. Loss of disc signal is seen at this level. Reactive marrow endplate changes are seen which are hypointense on T1-weighted imaging and hyperintense on T2 weighted imaging, which is most consistent with edema (Modic type I changes). Mild generalized disc bulge is seen. There is mild left-sided and minimal right-sided neural foraminal narrowing. The central canal is widely patent. L2-L3: The disc height is well-preserved. Loss of disc signal is seen at this level. Reactive marrow endplate changes are seen which are hypointense on T1-weighted imaging and hyperintense on T2 weighted imaging, which is most consistent with edema (Modic type I changes). Mild generalized disc bulge is seen. No significant neural foraminal or central canal narrowing can be seen. L3-L4: Mild loss of disc height is seen. Loss of disc signal is seen. Reactive marrow endplate changes are seen which are hypointense on T1-weighted imaging and hyperintense on T2 weighted imaging, which is most consistent with edema (Modic type I changes). There is a mild degree of endplate enhancement seen, which is attributed to degenerative enhancement. Mild to moderate disc bulge is seen. Mild to moderate facet hypertrophy can be seen. There is moderate right-sided and no significant left-sided neural foraminal narrowing. Mild central canal narrowing is seen. L4-L5: The disc height is well-preserved. Loss of disc signal is seen at this level. Mild to moderate disc bulge is seen. There is moderate to prominent facet hypertrophy seen, right worse than left. Associated hypertrophy of the ligamentum flavum can be seen. Moderate bilateral neural foraminal narrowing is seen. Moderate central canal narrowing is seen. Prior left hemilaminotomy change can be seen. L5-S1: The disc height is well-preserved. Loss of disc signal is seen at this level. Mild to moderate disc bulge is seen, which is eccentric to left. There is at least moderate facet hypertrophy seen. There is moderate left-sided and mipz-tp-wvpefedx right-sided neural foraminal narrowing. No central canal narrowing is seen. IMPRESSION: No masses are seen. No significant abnormal enhancement can be seen. Multiple levels of degenerative change are seen, which are similar to the priors. Dictated by: Kalin Ovalle M.D. on 01/18/2023 at 14:47 Approved by: Kalin Ovalle M.D. on 01/18/2023 at 14:53
== END ==
PROVIDERS: PCP Nurse Practitioner; Referring Provider Nurse Practitioner; Visit Provider Nurse Practitioner
DX: M47.812 Spondylosis without myelopathy or radiculopathy, cervical region (principal); M47.816 Spondylosis without myelopathy or radiculopathy, lumbar region; M47.817 Spondylosis without myelopathy or radiculopathy, lumbosacral region; G96.191 Perineural cyst; M54.41 Lumbago with sciatica, right side; M54.42 Lumbago with sciatica, left side; M99.03 Segmental and somatic dysfunction of lumbar region; M99.79 Connective tissue and disc stenosis of intervertebral foramina of abdomen and other regions; M51.9 Unspecified thoracic, thoracolumbar and lumbosacral intervertebral disc disorder; R29.898 Other symptoms and signs involving the musculoskeletal system; Z98.890 Other specified postprocedural states; Z98.1 Arthrodesis status
CPT/HCPCS: 72156; 72157; 72158

== ENCOUNTER → 2023-03-13 08:48 | Outpatient (CLI) | payer MEDICARE, OTHER, SELFPAY ==
--- NOTE | 2023-03-13 08:54 | DI.RAD.S_ITS ---
Bone Density Report Name: ADE DELACRUZ Age: 77 Sex: Female Ethnicity: White Date of : 1945 Indication: osteopenia; Referring Provider: LEO NIELSON Study: Bone densitometry was performed. Exam Date: March 13, 2023 Accession number: [id number] Bone Density: Region BMD T-score Z-score Classification AP Spine(L1-L4) 0.934 -1.0 1.5 Normal Femoral Neck (Left) 0.591 -2.3 -0.2 Osteopenia Total Hip (Left) 0.676 -2.2 -0.3 Osteopenia Femoral Neck (Right) 0.682 -1.5 0.6 Osteopenia Total Hip (Right) 0.694 -2.0 -0.2 Osteopenia Total Hip Mean 0.685 -2.1 -0.3 Osteopenia World Health Organization criteria for BMD impression classify patients as: Normal (T-score at or above -1.0), Osteopenia (T-score between -1.0 and -2.5), or Osteoporosis (T-score at or below -2.5). 10-year Fracture Risk(1): Major Osteoporotic Fracture 16% Hip Fracture 4.6% Reported Risk Factors: [place] (), Neck BMD=0.591, BMI=25.8 (1) FRAX(R) Version 3.08. Fracture probability calculated for an untreated patient. Fracture probability may be lower if the patient has received treatment. Previous Exams: -- Region Exam Age BMD T-score BMD Change BMD Change Date g/cm2 vs Baseline vs Previous -- AP Spine (L1-L4) 03/13/2023 77 0.934 -1.0 -0.067 (-6.7%)# -0.067 (-6.7%)# 01/27/2021 75 1.001 -0.4 Total Hip(Left) 03/13/2023 77 0.676 -2.2 -0.152 (-18.3%)# -0.152 (-18.3%)# 01/27/2021 75 0.828 -0.9 Total Hip(Right) 03/13/2023 77 0.694 -2.0 -0.051 (-6.8%)# -0.051 (-6.8%)# 01/27/2021 75 0.745 -1.6 -- *Denotes significance at 95% confidence level, LSC for AP Spine = 0.022 g/cm2, LSC for Total Hip = 0.027 g/cm2 # Denotes dissimilar scan types or analysis methods Impression: The patient has low bone mass, based on the Left Femoral Neck T-score. The patient has an estimated ten-year risk of hip fracture of 4.6% and an estimated ten-year risk of major fracture of 16%, based on the WHO FRAX algorithm. No significant bone loss was observed. Discussion: BONE DENSITY IS LOW AT ONE OR MORE SKELETAL SITES. THE PATIENT'S BMD AND CLINICAL RISK FACTORS CONTRIBUTE TO THIS PATIENT'S INCREASED RISK OF FRACTURE. This patient's lowest T-score is low at one or more skeletal sites. It meets the World Health Organization's (WHO) criteria for low bone mass (T-score between -1.0 and -2.5). The patient's 10-year risk of hip fracture as calculated by FRAX exceeds the threshold where pharmacological therapy is recommended by the National Osteoporosis Foundation (NOF). However, all treatment decisions require clinical judgment and consideration of individual patient factors, including patient preferences, comorbidities, previous drug use, risk factors not captured in the FRAX model (e.g., frailty, falls, vitamin D deficiency, increased bone turnover, interval significant decline in bone density) and possible under or overestimation of fracture risk by FRAX. The patient should follow a healthful lifestyle (good nutrition with adequate calcium and vitamin D, and appropriate weight-bearing exercise). Follow-Up: Consider a repeat BMD and Vertebral Fracture Assessment (VFA) exam in 2 years or sooner if medically necessary, to reassess this patient's status. Reported by: LIV KAPOOR M.D on 03/13/2023 10:15:00 AM.
--- NOTE | 2023-03-13 08:54 | DI.MG.S_ITS ---
BILATERAL DIGITAL DIAGNOSTIC MAMMOGRAM 3D/2D SHORT-TERM FOLLOW-UP: 03/13/2023 CLINICAL: Right short term follow; due bilateral. Comparison is made to exams dated: 02/14/2022 mammogram, 09/02/2019 mammogram, and 01/27/2021 mammogram - [facility]. Both breasts are heterogeneously dense, which may obscure small masses (category c / 51-75% glandular tissue). There is a possible asymmetry in the right breast middle depth medial region seen on the craniocaudal view only. This is less prominent. No other significant masses, calcifications, or other findings are seen in either breast. IMPRESSION: NEGATIVE There is no mammographic evidence of malignancy. Return to annual mammogram screening schedule is recommended. Based on the Tyrer Cuzick model (a risk assessment model) the patient's lifetime risk is 5.1% and her 10 year risk is 0.0%. According to the ACR, ACS, and NCCN guidelines, an annual breast MRI exam along with mammogram is recommended if the patient's lifetime risk is 20% or greater. This exam was interpreted at Station ID: [id number]. NOTE: For mammograms, a report in lay terms will be sent to the patient. Approximately 15% of breast malignancies will not be visualized mammographically. In the management of a palpable breast mass, a negative mammogram must not discourage biopsy of a clinically suspicious lesion. Electronically Signed By: German Rosa M.D. lc/:03/13/2023 10:15:38 letter sent: Normal Exam ACR BI-RADS Category 1: Negative 3341F
[2023-03-13 10:33] LABS: Alanine Aminotransferase 18 IU/L (<35); Albumin 4.4 g/dL (3.5-5.0); Albumin Globulin Ratio 1.6 (1.0-2.8); Alkaline Phosphatase 78 U/L (38-126); Aspartate Aminotransferase 24 IU/L (14-36); BUN Creatinine Ratio 24.6 (6-22); Bilirubin Total 0.7 mg/dL (0.2-1.3); Blood Urea Nitrogen 17 mg/dL (7-17); Calcium 9.3 mg/dL (8.4-10.2); Carbon Dioxide 32 mmol/L (22-32); Chloride 99 mmol/L (98-107); Cholesterol 180 mg/dL (140-199); Estimated Glomerular Filt Rate > 60 mL/min (>60); Globulin 2.7 g/dL (1.7-4.1); Glucose 106 mg/dL (80-110); HDL Cholesterol 100 mg/dL (40-60); HEMOLYSIS < 15 (0-50); LDL Cholesterol Calculated 66 mg/dL (<100); Potassium 4.5 mmol/L (3.4-5.1); Sodium 136 mmol/L (137-145); Total Protein 7.1 g/dL (6.3-8.2); Triglycerides 71 mg/dL (35-150)
[2023-03-13 10:51] LABS: Free T3, Triiodothyronine Free 5.09 pg/mL (2.77-5.27)
[2023-03-13 15:56] LABS: Hep C Virus Ab w/Reflex Quant NEGATIVE s/c (NEGATIVE)
== END ==
PROVIDERS: PCP Nurse Practitioner; Referring Provider Nurse Practitioner; Visit Provider Nurse Practitioner
DX: R92.8 Other abnormal and inconclusive findings on diagnostic imaging of breast (principal); M85.852 Other specified disorders of bone density and structure, left thigh; Z78.0 Asymptomatic menopausal state; E78.5 Hyperlipidemia, unspecified; I10 Essential (primary) hypertension; Z11.59 Encounter for screening for other viral diseases; Z79.899 Other long term (current) drug therapy; Z90.710 Acquired absence of both cervix and uterus
CPT/HCPCS: 36415; 77066; 77080; 80053; 80061; 84439; 84443; 84481; 86803; G0279

== ENCOUNTER → 2023-03-16 11:15 | Outpatient (CLI) | payer MEDICARE, OTHER, SELFPAY ==
[2023-03-16 15:23] LABS: Creatinine Urine Random 51.9 mg/dL
[2023-03-16 15:27] LABS: Microalbumi Creatinin Ratio Ur 21.1 ug/mg CR (<30); Microalbumin Urine Random 1.1 mg/dL (0-1.6)
== END ==
PROVIDERS: PCP Nurse Practitioner; Referring Provider Nurse Practitioner; Visit Provider Nurse Practitioner
DX: I10 Essential (primary) hypertension (principal)
CPT/HCPCS: 82043; 82570

== ENCOUNTER → 2024-03-20 08:41 | Outpatient (CLI) | payer MEDICARE, OTHER, SELFPAY ==
--- NOTE | 2024-03-20 08:43 | DI.MG.S_ITS ---
BILATERAL DIGITAL SCREENING MAMMOGRAM 3D/2D WITH CAD: 03/20/2024 CLINICAL: Routine screening. Comparison is made to exams dated: 03/13/2023 mammogram, 02/14/2022 mammogram, and 01/27/2021 mammogram - [facility]. Both breasts are heterogeneously dense, which may obscure small masses (category c / 51-75% glandular tissue). Current study was also evaluated with a Computer Aided Detection (CAD) system. There are benign vascular calcifications in both breasts. No significant masses, calcifications, or other findings are seen in either breast. There has been no significant interval change. IMPRESSION: BENIGN There is no mammographic evidence of malignancy. A 1 year screening mammogram is recommended. Based on the Tyrer Cuzick model (a risk assessment model) the patient's lifetime risk is 4.6% and her 10 year risk is 0.0%. According to the ACR, ACS, and NCCN guidelines, an annual breast MRI exam along with mammogram is recommended if the patient's lifetime risk is 20% or greater. This exam was interpreted at Station ID: [id number]. NOTE: For mammograms, a report in lay terms will be sent to the patient. Approximately 15% of breast malignancies will not be visualized mammographically. In the management of a palpable breast mass, a negative mammogram must not discourage biopsy of a clinically suspicious lesion. Electronically Signed By: An mera/lashonda:03/20/2024 10:17:38 letter sent: Normal Exam ACR BI-RADS Category 2: Benign Finding(s) 3342F
== END ==
LOC: MAMMO 08:42
PROVIDERS: PCP Nurse Practitioner; Referring Provider Nurse Practitioner; Visit Provider Nurse Practitioner
DX: Z12.31 Encounter for screening mammogram for malignant neoplasm of breast (principal); R92.333 Mammographic heterogeneous density, bilateral breasts
CPT/HCPCS: 77063; 77067

== ENCOUNTER → 2024-03-21 06:51 | Outpatient (CLI) | payer MEDICARE, OTHER, SELFPAY ==
[2024-03-21 08:36] LABS: Add Manual Diff / Slide Review NO; Basophils Absolute Auto 0 /uL (0-100); Basophils Percent Auto 0.4 % (0-2); Eosinophils Absolute Auto 100 /uL (0-450); Eosinophils Percent Auto 2.6 % (2-4); Hematocrit 46.1 % (36-46); Lymphocytes Absolute Auto 1100 /uL (1100-4500); Lymphocytes Percent Auto 21.6 % (25-40); Mean Corpuscular HGB Conc 34.7 % (30-36); Mean Corpuscular Hemoglobin 33.1 PG (26-34); Mean Corpuscular Volume 95.3 fL (80-100); Monocytes Absolute Auto 400 /uL (0-900); Monocytes Percent Auto 8.7 % (3-14); Neutrophils Absolute Auto 3300 /uL (1500-7000); Neutrophils Percent Auto 66.7 % (50-75); Platelet Count 199 X10^3/uL (150-400); Red Blood Cell Count 4.84 X10^6/uL (4.0-5.2); Red Cell Distribution Width 13.2 % (11.6-14.8); White Blood Cell Count 4.9 X10^3/uL (4.5-11.0)
[2024-03-21 08:54] LABS: Alanine Aminotransferase 50 IU/L (<35); Albumin 4.4 g/dL (3.5-5.0); Alkaline Phosphatase 69 U/L (38-126); Aspartate Aminotransferase 33 IU/L (14-36); BUN Creatinine Ratio 21.8 (6-22); Bilirubin Total 1.1 mg/dL (0.2-1.3); Blood Urea Nitrogen 19 mg/dL (7-17); Carbon Dioxide 28 mmol/L (22-32); Chloride 103 mmol/L (98-107); Cholesterol 162 mg/dL (140-199); Estimated Glomerular Filt Rate > 60 mL/min (>60); Globulin 2.2 g/dL (1.7-4.1); Glucose 96 mg/dL (80-110); HDL Cholesterol 80 mg/dL (40-60); HEMOLYSIS < 15 (0-50); LDL Cholesterol Calculated 68 mg/dL (<100); Potassium 4.3 mmol/L (3.4-5.1); Sodium 140 mmol/L (137-145); Total Protein 6.6 g/dL (6.3-8.2); Triglycerides 68 mg/dL (35-150)
[2024-03-21 09:13] LABS: Free T3, Triiodothyronine Free 3.54 pg/mL (2.77-5.27); Free T4, Direct Thyroxine 1.11 ng/dL (0.78-2.19)
[2024-03-21 09:30] LABS: Thyroid Stimulating Hormone 3.18 uIU/mL (0.47-4.68)
[2024-03-21 11:20] LABS: Creatinine Urine Random 78.75 mg/dL
[2024-03-21 11:26] LABS: Microalbumin Urine Random 1.4 mg/dL (0-1.6)
== END ==
PROVIDERS: PCP Nurse Practitioner; Referring Provider Nurse Practitioner; Visit Provider Nurse Practitioner
DX: D64.9 Anemia, unspecified (principal); Z79.899 Other long term (current) drug therapy; I10 Essential (primary) hypertension; M85.89 Other specified disorders of bone density and structure, multiple sites; E78.5 Hyperlipidemia, unspecified
CPT/HCPCS: 36415; 80053; 80061; 82043; 82570; 84439; 84443; 84481; 85025

== ENCOUNTER → 2024-11-16 10:25 | Outpatient (CLI) | payer MEDICARE, OTHER, SELFPAY ==
--- NOTE | 2024-11-16 10:43 | EKG_ITS ---
[address] [address] Test Date: 2024-11-16 Pat Name: Mirela Corona Department: [facility] Room: Gender: Female Inspector Poising: CESAR : 1945 Requested By: Order Number: [id number] Reading MD: Donnell Travis Measurements Intervals [place] Rate: 116 P: OK: QRS: 9 QRSD: 82 T: 75 QT: 290 QTc: 403 Interpretive Statements Atrial fibrillation with rapid ventricular response Electronically Signed On 11-16-2024 18:31:49 PDT by Donnell Travis
[2024-11-16 11:48] LABS: Add Manual Diff / Slide Review NO; Basophils Absolute Auto 0 /uL (0-100); Basophils Percent Auto 0.5 % (0-2); Eosinophils Absolute Auto 100 /uL (0-450); Eosinophils Percent Auto 1.4 % (2-4); Hematocrit 48.4 % (36-46); Hemoglobin 16.6 g/dL (12.0-16.0); Lymphocytes Absolute Auto 1200 /uL (1100-4500); Lymphocytes Percent Auto 17.7 % (25-40); Mean Corpuscular HGB Conc 34.3 % (30-36); Mean Corpuscular Volume 93.2 fL (80-100); Monocytes Absolute Auto 400 /uL (0-900); Monocytes Percent Auto 6.1 % (3-14); Neutrophils Absolute Auto 5100 /uL (1500-7000); Neutrophils Percent Auto 74.3 % (50-75); Platelet Count 199 X10^3/uL (150-400); Red Blood Cell Count 5.19 X10^6/uL (4.0-5.2); Red Cell Distribution Width 13.9 % (11.6-14.8); White Blood Cell Count 6.9 X10^3/uL (4.5-11.0)
[2024-11-16 12:03] LABS: Alanine Aminotransferase 38 IU/L (<35); Albumin 4.7 g/dL (3.5-5.0); Albumin Globulin Ratio 2.2 (1.0-2.8); Alkaline Phosphatase 78 U/L (38-126); Aspartate Aminotransferase 36 IU/L (14-36); BUN Creatinine Ratio 18.9 (6-22); Bilirubin Total 1.4 mg/dL (0.2-1.3); Blood Urea Nitrogen 18 mg/dL (7-17); Calcium 9.9 mg/dL (8.4-10.2); Carbon Dioxide 29 mmol/L (22-32); Chloride 100 mmol/L (98-107); Estimated Glomerular Filt Rate > 60 mL/min (>60); Globulin 2.1 g/dL (1.7-4.1); Glucose 108 mg/dL (80-110); HEMOLYSIS 15 (0-50); Potassium 4.4 mmol/L (3.4-5.1); Sodium 136 mmol/L (137-145); Total Protein 6.8 g/dL (6.3-8.2)
[2024-11-16 12:21] LABS: Free T3, Triiodothyronine Free 4.72 pg/mL (2.77-5.27)
[2024-11-16 12:35] LABS: Thyroid Stimulating Hormone 1.95 uIU/mL (0.47-4.68)
== END ==
PROVIDERS: PCP Nurse Practitioner; Referring Provider Nurse Practitioner; Visit Provider Nurse Practitioner
DX: I48.91 Unspecified atrial fibrillation (principal); I49.9 Cardiac arrhythmia, unspecified; R00.2 Palpitations; I10 Essential (primary) hypertension
CPT/HCPCS: 36415; 80053; 84439; 84443; 84481; 85025; 93005

== ENCOUNTER → 2024-11-21 09:37 | Outpatient (CLI) | payer MEDICARE, OTHER, SELFPAY | PROVIDERS: PCP Nurse Practitioner; Referring Provider Nurse Practitioner; Visit Provider Nurse Practitioner | DX: R00.2 Palpitations (principal); I48.91 Unspecified atrial fibrillation | CPT/HCPCS: 93242; 93244 ==

== ENCOUNTER → 2025-03-17 06:47 | Outpatient (CLI) | payer MEDICARE, OTHER, SELFPAY ==
[2025-03-17 07:39] LABS: Add Manual Diff / Slide Review NO; Hematocrit 45.9 % (36-46); Hemoglobin 16.2 g/dL (12.0-16.0); Lymphocytes Absolute Auto 1300 /uL (1100-4500); Mean Corpuscular HGB Conc 35.3 % (30-36); Mean Corpuscular Hemoglobin 32.6 PG (26-34); Mean Corpuscular Volume 92.2 fL (80-100); Platelet Count 205 X10^3/uL (150-400)
[2025-03-17 07:58] LABS: Alanine Aminotransferase 17 IU/L (<35); Albumin 4.7 g/dL (3.5-5.0); Albumin Globulin Ratio 2.1 (1.0-2.8); Alkaline Phosphatase 74 U/L (38-126); Blood Urea Nitrogen 16 mg/dL (7-17); Calcium 9.7 mg/dL (8.4-10.2); Carbon Dioxide 30 mmol/L (22-32); Chloride 101 mmol/L (98-107); Cholesterol 179 mg/dL (140-199); Estimated Glomerular Filt Rate > 60 mL/min (>60); Globulin 2.2 g/dL (1.7-4.1); Glucose 90 mg/dL (70-99); HDL Cholesterol 88 mg/dL (40-60); HEMOLYSIS < 15 (0-50); Potassium 4.3 mmol/L (3.4-5.1); Sodium 137 mmol/L (137-145); Total Protein 6.9 g/dL (6.3-8.2); Triglycerides 89 mg/dL (35-150)
[2025-03-17 08:15] LABS: Free T3, Triiodothyronine Free 3.46 pg/mL (2.77-5.27); Free T4, Direct Thyroxine 1.05 ng/dL (0.78-2.19)
[2025-03-17 08:29] LABS: Thyroid Stimulating Hormone 4.14 uIU/mL (0.47-4.68)
== END ==
PROVIDERS: PCP Nurse Practitioner; Referring Provider Nurse Practitioner; Visit Provider Nurse Practitioner
DX: I10 Essential (primary) hypertension (principal)
CPT/HCPCS: 36415; 80053; 80061; 84439; 84443; 84481; 85025

== ENCOUNTER → 2025-08-25 13:00 | Outpatient (CLI) | payer MEDICARE, OTHER, SELFPAY ==
[2025-08-25 13:39] LABS: Add Manual Diff / Slide Review NO; Hematocrit 45.7 % (36-46); Hemoglobin 15.7 g/dL (12.0-16.0); Lymphocytes Absolute Auto 900 /uL (1100-4500); Mean Corpuscular HGB Conc 34.4 % (30-36); Mean Corpuscular Hemoglobin 33.1 PG (26-34); Mean Corpuscular Volume 96.3 fL (80-100); Platelet Count 191 X10^3/uL (150-400)
[2025-08-25 13:48] LABS: Hemoglobin A1C% w Est Avg Glu 5.0 % (4.0-6.0)
[2025-08-25 14:42] LABS: Albumin 4.9 g/dL (3.5-5.0); Blood Urea Nitrogen 18 mg/dL (7-17); Calcium 9.8 mg/dL (8.4-10.2); Carbon Dioxide 29 mmol/L (22-32); Chloride 96 mmol/L (98-107); Estimated Glomerular Filt Rate 59 mL/min (>60); Glucose 101 mg/dL (70-99); HEMOLYSIS < 15 (0-50); Potassium 4.3 mmol/L (3.4-5.1); Sodium 135 mmol/L (137-145)
[2025-08-25 14:50] LABS: Prealbumin 27.6 mg/dL (17.6-36.0)
[2025-08-25 15:09] LABS: Vitamin D 25 Hydroxy (D3) 56.2 ng/mL (30.0-100.0)
== END ==
PROVIDERS: PCP Nurse Practitioner; Referring Provider Orthopaedic Surgery Adult Reconstructive Orthopaedic Surgery; Visit Provider Orthopaedic Surgery Adult Reconstructive Orthopaedic Surgery
DX: Z01.818 Encounter for other preprocedural examination (principal)
CPT/HCPCS: 36415; 80048; 82040; 82306; 83036; 84134; 85025